=== PATIENT | male | born 1960 | race Caucasian/White ===

== ENCOUNTER 2017-04-09 17:42 | Inpatient (IN) ==
[2017-04-09] MEDS ORDERED: IPRATROPIUM/ALBUTEROL 3 ML AMPUL.NEB NEB ONE ×2 (17:45→18:42)
[2017-04-09] MEDS ORDERED: NITROGLYCERIN 0.4 MG TAB.SUBL SL PRN (18:08)
[2017-04-09] MEDS ORDERED: 0.9 % SODIUM CHLORIDE 1,000 ML IV ONE ×2 (18:30→19:09)
[2017-04-09 18:34] LABS: Basophils # (Auto) 0 K/mcL (0.0-0.3); Basophils % (Auto) 0.3 % (0.0-2.0); Eosinophils # (Auto) 0.1 K/mcL (0.0-0.7); Eosinophils % (Auto) 0.6 % (0.0-7.0); Granulocytes % (Auto) 86.2 % (38.0-78.0); Lymphocytes # (Auto) 0.9 K/mcL (1.5-4.8); Lymphocytes % (Auto) 5.7 % (15.5-49.0); Mean Cell Volume 88.7 fL (80.0-100.0); Mean Corpuscular HGB Conc 33.2 g/dL (31.0-36.0); Mean Corpuscular Hemoglobin 29.5 pg (26.0-34.0); Monocytes # (Auto) 1.1 K/mcL (0.1-0.9); Monocytes % (Auto) 7.2 % (1.0-12.0); Platelet Count 245 K/mcL (140-440); RBC 4.94 M/mcL (4.50-5.90); Red Cell Distribution Width 14.1 % (11.5-14.5)
--- NOTE | 2017-04-09 18:40 | Emergency Department Note ---
SOB HPI - General Chief Complaint: Shortness of Breath/Dyspnea Stated Complaint: cough, shortness of breath Time Seen by Provider: 04/09/17 18:32 Source: patient, family Mode of arrival: ambulatory Limitations: no limitations - History of Present Illness History of cough since yesterday, is running a fever. He is also bringing up phlegm, quit smoking about 4 months ago, I believe wheezing and short of breath. The. He was also hypoxic in the preoperative. Currently on 2 L nasal cannula. Denies any chest pain, he's had no nausea, vomiting, denies abdominal pain, denies urinary symptoms, he's had no swelling of ankles. No history of heart condition. MD Complaint: shortness of breath - Related Data Home Medications Medication Instructions Recorded Confirmed No Known Home Meds [No Known Home 04/09/17 04/09/17 Meds] Allergies Allergy/AdvReac Type Severity Reaction Status Date / Time No Known Drug Allergies Allergy Unverified 01/28/16 20:13 Review of Systems All systems ED: reviewed and negative except as stated. Past Medical History - Past Medical History Medical history: Reports: COPD, other (history of pneumonia as a child) Surgical history ED: Reports: other (tonsilectomy) Psychiatric history: Reports: no psych history Family history: Reports: non-contributory - Social History smoking status: Former smoker Alcohol use: Reports: None Physical Exam - General Limitations: no limitations General appearance: alert, in distress - Head Head exam: atraumatic, normocephalic - Eye Eye exam: Present: normal appearance, PERRL, EOMI. Absent: scleral icterus, conjunctival injection - ENT ENT exam: normal exam, normal oropharynx, mucous membranes moist - Neck Neck exam: Present: normal inspection, full ROM, trachea midline - Chest Chest inspection: Present: normal inspection, symmetric chest wall rise. Absent : tenderness - Respiratory Respiratory exam: Present: respiratory distress, wheezes, accessory muscle use, prolonged expiratory phase - Cardiovascular Cardiovascular exam: Present: regular rate, normal heart sounds - Abdominal Exam Abdominal exam: Present: soft. Absent: distention, tenderness, guarding - Extremities Exam Extremities exam: Present: normal inspection, full ROM, tenderness. Absent: pedal edema, calf tenderness - Back Exam Back exam: Present: normal inspection, full ROM. Absent: CVA tenderness (R), CVA tenderness (L), vertebral tenderness - Neurological Exam Neurological exam: Present: alert, oriented X3, CN II-XII intact - Psychiatric Psychiatric exam: Present: normal affect, normal mood - Skin Skin exam: Present: warm, dry, intact. Absent: rash Course Vital Signs Temperature 100.0 F H 04/09/17 17:43 Pulse Rate 106 H 04/09/17 17:43 Respiratory Rate 20 04/09/17 17:43 Blood Pressure 133/76 04/09/17 17:43 Pulse Oximetry (%) 85 L 04/09/17 17:43 Temperature 100.0 F H 04/09/17 17:43 Pulse Rate 125 H 04/09/17 19:04 Respiratory Rate 17 04/09/17 19:04 Blood Pressure 134/76 04/09/17 19:01 Pulse Oximetry (%) 96 04/09/17 19:01 Shortness of Breath/Dyspnea - MDM Narrative Medical decision making narrative: Labs reviewed, Chest X-Ray without Acute Infiltrates or Borderline, We'll Treat As Pneumonia, COPD Exacerbation. Discussed with Dr. Middleton - Lab Data Result diagrams: 04/09/17 18:08 04/09/17 18:08 Lab Results 04/09/17 04/09/17 04/09/17 Range/Units 18:08 18:08 18:08 WBC 15.8 H (4.5-11.0) K/mcL RBC 4.94 (4.50-5.90) M/mcL Hgb 14.6 (13.5-16.5) g/dL Hct 43.8 (41.0-55.0) % MCV 88.7 (80.0-100.0) fL MCH 29.5 (26.0-34.0) pg MCHC 33.2 (31.0-36.0) g/dL RDW 14.1 (11.5-14.5) % Plt Count 245 (140-440) K/mcL MPV 8.9 (7.4-10.4) fL Gran % 86.2 H (38.0-78.0) % Lymph % (Auto) 5.7 L (15.5-49.0) % [place] % (Auto) 7.2 (1.0-12.0) % Eos % (Auto) 0.6 (0.0-7.0) % Baso % (Auto) 0.3 (0.0-2.0) % Gran # 13.6 H (1.8-8.0) K/mcL Lymph # 0.9 L (1.5-4.8) K/mcL [place] # 1.1 H (0.1-0.9) K/mcL Eos # 0.1 (0.0-0.7) K/mcL Baso # 0 (0.0-0.3) K/mcL VBG Lactic Acid (0.5-2.2) mmol/L Sodium 138 (133-145) mmol/L Potassium 3.9 (3.3-5.1) mmol/L Chloride 99 (96-108) mmol/L Carbon Dioxide 19 L (22-30) mmol/L Anion Gap 20.0 H (8-16) BUN 11 (6-20) mg/dl Creatinine 0.9 (0.7-1.2) mg/dl GFR Calculation 94 Glucose 89 (70-105) mg/dL Calcium 9.1 (8.6-10.4) mg/dl Total Bilirubin 0.8 (0.0-1.0) mg/dL AST 17 (0-37) U/l ALT 18 (0-40) U/l Alkaline Phosphatase 71 (39-117) U/L C-Reactive Protein 2.1 H (0.0-0.8) mg/dl Total Protein 7.6 (5.9-8.4) gm/dL Albumin 4.1 (3.2-5.2) gm/dL Globulin 3.5 (2.2-3.7) gm/dL Albumin/Globulin Ratio 1.2 (1.0-2.3) 04/09/17 Range/Units 18:22 WBC (4.5-11.0) K/mcL RBC (4.50-5.90) M/mcL Hgb (13.5-16.5) g/dL Hct (41.0-55.0) % MCV (80.0-100.0) fL MCH (26.0-34.0) pg MCHC (31.0-36.0) g/dL RDW (11.5-14.5) % Plt Count (140-440) K/mcL MPV (7.4-10.4) fL Gran % (38.0-78.0) % Lymph % (Auto) (15.5-49.0) % [place] % (Auto) (1.0-12.0) % Eos % (Auto) (0.0-7.0) % Baso % (Auto) (0.0-2.0) % Gran # (1.8-8.0) K/mcL Lymph # (1.5-4.8) K/mcL [place] # (0.1-0.9) K/mcL Eos # (0.0-0.7) K/mcL Baso # (0.0-0.3) K/mcL VBG Lactic Acid 1.3 (0.5-2.2) mmol/L Sodium (133-145) mmol/L Potassium (3.3-5.1) mmol/L Chloride (96-108) mmol/L Carbon Dioxide (22-30) mmol/L Anion Gap (8-16) BUN (6-20) mg/dl Creatinine (0.7-1.2) mg/dl GFR Calculation Glucose (70-105) mg/dL Calcium (8.6-10.4) mg/dl Total Bilirubin (0.0-1.0) mg/dL AST (0-37) U/l ALT (0-40) U/l Alkaline Phosphatase (39-117) U/L C-Reactive Protein (0.0-0.8) mg/dl Total Protein (5.9-8.4) gm/dL Albumin (3.2-5.2) gm/dL Globulin (2.2-3.7) gm/dL Albumin/Globulin Ratio (1.0-2.3) Disposition Clinical Impression: Community acquired pneumonia Disposition: Xfer As Inpt ([facility]) Condition: Fair Referrals: No,PCP [Primary Care Provider] -
[2017-04-09] MEDS ORDERED: methylPREDNISolone SOD SUCC 125 MG/2 ML VIAL IV ONE (18:42)
[2017-04-09] MEDS ORDERED: AZITHROMYCIN 500 MG in DEXTROSE 5% IN WATER 250 ML IV ONE (18:44)
[2017-04-09] MEDS ORDERED: cefTRIAXone 1 GM in DEXTROSE 5% IN WATER 50 ML IV ONE (18:45)
[2017-04-09 19:00] LABS: ALT/SGPT 18 U/l (0-40); Albumin 4.1 gm/dL (3.2-5.2); Albumin/Globulin Ratio 1.2 (1.0-2.3); Alkaline Phosphatase 71 U/L (39-117); Blood Urea Nitrogen 11 mg/dl (6-20)
[2017-04-09] MEDS ORDERED: ONDANSETRON 4 MG/2 ML VIAL IV ONE (19:42)
--- NOTE | 2017-04-09 19:47 | Internal Med History&Physical ---
Medical - H&P: HPI Patient information: Note initiated : 04/09/17 at 7:43 pm Patient: Lizandro Spangler 56 y/o M admitted on for cough, shortness of breath. History of present illness: Mr. Spangler is a 56 year old male ho was seen in our emergency room and treated for bronchitis one year ago. He had a long-standing history of smoking, but says he quit about 1 year ago. He does not see a doctor regularly. He says he was in his normal state of health until about 3 days ago, when he developed a cough productive of phlegm, as well as a runny nose. He also noted the onset of fever and chills He has been having a headache when he coughs. His chest has been feeling tight. He's had some mild nausea. He presented to the emergency room today, and was noted to have hypoxia on room air. White blood cell count was elevated. He was treated aggressively with bronchodilators , IV steroids, IV antibiotics, and oxygen, but had persistent symptoms and therefore was referred for admission. He otherwise denies new eye or ear symptoms sinus pain, sore throat lymphadenopathy, chest pain or palpitations, abdominal pain, vomiting, diarrhea or constipation, bright red blood per rectum, dysuria. past medical history: Tobacco abuse,, approximately [id number] history,quit in 2016 Probable underlying COPD Medications:None Allergies: None Family history: Mother had diabetes. Father had colon cancer. His siblings are alive and well. He has 2 sons who are alive and well. 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 He smoked from the age of 18 until age 55, half to 1 pack per day. He only drinks alcohol about once a month. He does not use drugs. he is , and lives with his and one of his sons. Medical - H&P: Meds Home Medications Medication Instructions Recorded Confirmed Type No Known Home Meds [No Known Home 04/09/17 04/09/17 History Meds] Allergies Allergy/AdvReac Type Severity Reaction Status Date / Time No Known Drug Allergies Allergy Unverified 01/28/16 20:13 Medical - H&P: Exam - Constitutional Vitals: Temp Pulse Resp BP Pulse Ox 100.0 F H 121 H 19 138/79 94 04/09/17 17:43 04/09/17 19:31 04/09/17 19:31 04/09/17 19:31 04/09/17 19:31 on exam, he is a well-developed well-nourished man, in no acute distress, but with a very frequent very congested cough. he appears fatigued. Head: Normocephalic, atraumatic. Eyes: PERRLA, EOMI, anicteric. Ears: TMs and canals are clear. Pharynx: Pharynx is clear. Teeth are in fair condition. Neck: Neck is supple, without lymphadenopathy, JVD, thyromegaly, bruits.Cardiac exam: Shows regular rate and rhythm, with normal S1 and S2, without murmurs, rubs, gallops. Lungs: He has good air movement, but diffuse, loud rhonchi and wheezes throughout both lung ness. No crackles are definitely heard. There is no accessory muscle use. Abdomen: Is soft and nontender, without obvious masses. Bowel sounds are active. Extremities: Show no cyanosis, clubbing, edema. Neurologic exam: Is grossly nonfocal. Skin exam: Shows no rashes or other worrisome lesions. Medical - H&P: Reslt - Labs CBC & Chem 7: 04/09/17 18:08 04/09/17 18:08 Labs: Short CBC 04/09/17 Range/Units 18:08 WBC 15.8 H (4.5-11.0) K/mcL Hgb 14.6 (13.5-16.5) g/dL Hct 43.8 (41.0-55.0) % Plt Count 245 (140-440) K/mcL BMP 04/09/17 18:08 Sodium 138 Potassium 3.9 Chloride 99 Carbon Dioxide 19 L BUN 11 Creatinine 0.9 Glucose 89 Calcium 9.1 Liver Function 04/09/17 Range/Units 18:08 Total Bilirubin 0.8 (0.0-1.0) mg/dL AST 17 (0-37) U/l ALT 18 (0-40) U/l Alkaline Phosphatase 71 (39-117) U/L Albumin 4.1 (3.2-5.2) gm/dL o2 saturation was 85% on room air in the emergency roomheart rate is ranging [id number] respiratory rate ranging from 17-24 CBC differential shows absolute granulocyte count elevated at 13,000, depressed lymphocyte count of 900 anion gap is elevated at 20 lactic acid is normal at 1.3 C-reactive protein is elevated at 2.1 chest x-ray: Verbal report is normal. Formal report is pending. Medical - H&P: A/P (1) COPD exacerbation Current visit: Yes Status: Acute (2) History of tobacco abuse Current visit: Yes Status: Chronic (3) SIRS (systemic inflammatory response syndrome) Current visit: Yes Status: Acute (4) Lymphopenia Current visit: Yes Status: Acute (5) Bronchitis Current visit: No Status: Acute - Narrative A/P Narrative: #1. Pulmonary/infectious disease. - This patient presents with fever, cough, hypoxia, leukocytosis consistent with SIRS syndrome . He likely has early pneumonia, versus COPD exacerbation with bronchitis. he was treated aggressively in the emergency room, but did not improve to the point where he would be safe going home. -Admit for IV antibiotics, telemetry, pulse oximetry. -Oxygen, nebulized bronchodilators. -IV steroids -Blood and sputum cultures. -Regarding hypoxia and tachycardia, also check d-dimer, BNP troponin, EKG. #2. History of tobacco abuse. patient has been abstinent for approximately one year. #3. CODE STATUS:full code. #4. DVT prophylaxis:Subcutaneous Lovenox. #5. Metabolic/renal. -Patient presents with anion gap acidosis. #6. Hematologic. -Mild lymphopenia. Check follow-up labs. this visit took approximately 60 minutes,to review the patient's case with the ER M.D., review test results interview and examine him, order more tests, write orders.
[2017-04-09] MEDS ORDERED: ONDANSETRON 4 MG/2 ML VIAL IV PRN (20:44)
[2017-04-09] MEDS ORDERED: DOCUSATE SODIUM 100 MG CAPSULE PO PRN (20:44)
[2017-04-09] MEDS ORDERED: MAGNESIUM HYDROXIDE 30 ML ORAL.SUSP PO PRN (20:44)
[2017-04-09] MEDS ORDERED: POTASSIUM CHLORIDE 20 MEQ in 0.45 % SODIUM CHLORIDE 1,000 ML IV SCH (20:44)
[2017-04-09] MEDS ORDERED: ALBUTEROL SULFATE 2.5 MG/3 ML NEBULIZER NEB PRN (20:44)
[2017-04-09] MEDS ORDERED: POTASSIUM CHLORIDE 20 MEQ/10 ML VIAL IV ONE (21:03)
[2017-04-09] MEDS: FAMOTIDINE 20 MG TABLET PO SCH (22:00)
[2017-04-09 22:16] LABS: ALT/SGPT 16 U/l (0-40); Albumin 3.8 gm/dL (3.2-5.2); Albumin/Globulin Ratio 1.3 (1.0-2.3); Alkaline Phosphatase 61 U/L (39-117); Bilirubin,Direct < 0.2 mg/dL (0.0-0.3); Blood Urea Nitrogen 10 mg/dl (6-20); Gamma Glutamyl Transpeptidase 10 U/L (8-61); Magnesium 1.5 mg/dL (1.6-2.5); proBNP 65.3 pg/ml (0-125)
[2017-04-09] MEDS ORDERED: MAGNESIUM SULFATE 2 GM/50 ML BAG IV ONE ×2 (22:37→22:44)
[2017-04-10] MEDS: IPRATROPIUM/ALBUTEROL 3 ML AMPUL.NEB NEB SCH ×4 (01:08→19:27)
[2017-04-10 06:29] LABS: ALT/SGPT 14 U/l (0-40); Albumin 3.6 gm/dL (3.2-5.2); Albumin/Globulin Ratio 1.2 (1.0-2.3); Alkaline Phosphatase 58 U/L (39-117); Bilirubin,Direct < 0.2 mg/dL (0.0-0.3); Blood Urea Nitrogen 10 mg/dl (6-20); Gamma Glutamyl Transpeptidase 10 U/L (8-61); Magnesium 2.2 mg/dL (1.6-2.5); Uric Acid 6.7 mg/dL (2.5-8.0)
[2017-04-10 06:51] LABS: Basophils # (Auto) 0 K/mcL (0.0-0.3); Basophils % (Auto) 0 % (0.0-2.0); Eosinophils # (Auto) 0 K/mcL (0.0-0.7); Eosinophils % (Auto) 0 % (0.0-7.0); Granulocytes % (Auto) 92.8 % (38.0-78.0); Lymphocytes # (Auto) 0.4 K/mcL (1.5-4.8); Lymphocytes % (Auto) 2.5 % (15.5-49.0); Mean Cell Volume 89.4 fL (80.0-100.0); Mean Corpuscular HGB Conc 33.4 g/dL (31.0-36.0); Mean Corpuscular Hemoglobin 29.8 pg (26.0-34.0); Monocytes # (Auto) 0.8 K/mcL (0.1-0.9); Monocytes % (Auto) 4.7 % (1.0-12.0); Platelet Count 195 K/mcL (140-440); RBC 4.31 M/mcL (4.50-5.90); Red Cell Distribution Width 14.2 % (11.5-14.5)
--- NOTE | 2017-04-10 08:01 | XRay Report ---
HISTORY: Reason for Exam:cough, fever FINDINGS: There is a small band of discoid atelectasis located laterally in the lower third of the right lung. Mildly prominent increased interstitial lung markings seen in the right upper lobe which may be due to mild underlying pulmonary fibrosis. There is no evidence of pneumonia, mass or pleural effusion. The heart size, mediastinum and rich are normal. IMPRESSION: Small band of discoid atelectasis in the right lower lobe. Interpreted and Authenticated by: Amos Rose 04/10/17
--- NOTE | 2017-04-10 08:03 | XRay Report ---
HISTORY: Reason for Exam:hypoxia FINDINGS: Patient has developed bibasilar alveolar infiltrates. These were not present on yesterday's exam. There are also thin bands of discoid atelectasis in both lower lobes. Mild pulmonary fibrosis is present in the right upper lobe. There is no pleural effusion. The heart size, mediastinum and rich are normal. IMPRESSION: Bibasilar pneumonia, right worse than left Interpreted and Authenticated by: Amos Rose 04/10/17
[2017-04-10] MEDS: ENOXAPARIN 40 MG/0.4 ML SYRINGE SQ SCH (08:38)
[2017-04-10] MEDS: FAMOTIDINE 20 MG TABLET PO SCH ×2 (08:38→20:42)
[2017-04-10] MEDS: methylPREDNISolone SOD SUCC 125 MG/2 ML VIAL IV SCH ×2 (08:38→20:42)
[2017-04-10] MEDS ORDERED: PNEUMOCOCCAL 23-VAL P-SAC VAC 0.5 ML VIAL IM ONE (09:00)
[2017-04-10] MEDS ORDERED: NICOTINE 14 MG PATCH TOPICAL SCH (10:00)
--- NOTE | 2017-04-10 10:50 | Internal Med Progress Note ---
Medical - PN: Subj Patient information: Note initiated : 04/10/17 at 10:50 am Patient: Lizandro Spangler 56 y/o M admitted on 04/09/17 for Cough, Shortness of Breath/Pneumonia. Interval history: april 09, 2017: History of present illness: Mr. Spangler is a 56 year old male who was seen in our emergency room and treated for bronchitis one year ago. He had a long-standing history of smoking, but says he quit about 1 year ago. He does not see a doctor regularly. He says he was in his normal state of health until about 3 days ago, when he developed a cough productive of phlegm, as well as a runny nose. He also noted the onset of fever and chills He has been having a headache when he coughs. His chest has been feeling tight. He's had some mild nausea. He presented to the emergency room today, and was noted to have hypoxia on room air. White blood cell count was elevated. He was treated aggressively with bronchodilators , IV steroids, IV antibiotics, and oxygen, but had persistent symptoms and therefore was referred for admission. He otherwise denies new eye or ear symptoms sinus pain, sore throat lymphadenopathy, chest pain or palpitations, abdominal pain, vomiting, diarrhea or constipation, bright red blood per rectum, dysuria. April 10: his morning, the patient says he was up a lot during the night coughing. He still has a cough productive of very large amounts of phlegm. He does think that his shortness of breath is mildly improved but he still feels quite fatigued. He did have a fever again this morning. He still notes subjective wheezing as well.Otherwise,his is here with him this morning. They both agree that he seems a little better today. He denies headaches or dizziness sore throat, chest pain or palpitations, abdominal pain, nausea or vomiting, diarrhea or constipation, dysuria. sputum is growing gram-negative rods on preliminary report. - Constitutional Vitals: Vital Signs Temp Pulse Resp BP Pulse Ox 100.7 F H 106 H 22 124/68 95 04/10/17 08:00 04/10/17 08:00 04/10/17 08:00 04/10/17 08:00 04/10/17 08:00 Period Temp Pulse Resp BP Sys/Reed Pulse Ox Last 24 Hr 98.9 F-100.7 F 104-107 18-22 115-124/63-68 3-95 Intake and Output 04/09/17 04/10/17 04/10/17 21:59 05:59 13:59 Intake Total 840 / 840 600 / 600 Output Total 1250 / 1250 925 / 925 Balance -410 / -410 -325 / -325 Weight 154 lb Intake & Output: Intake & Output 04/09/17 04/10/17 04/10/17 21:59 05:59 13:59 Intake Total 840 / 840 600 / 600 Output Total 1250 / 1250 925 / 925 Balance -410 / -410 -325 / -325 Weight 154 lb Intake: Oral 840 / 840 600 / 600 Output: Void Amount 1250 / 1250 925 / 925 Other: Meal Breakfast Percent of Meal Consumed 10 Feeding Ability Independent # Voids 2 the patient appears fatigued, but otherwise in no acute distress. he is able to speak a full sentence today, without being interrupted by a cough, which is improved. Neck shows no obvious lymphadenopathy or JVD. Cardiac exam shows regular rate and rhythm. Lungs: He still has fairly diffuse rhonchi and wheezes, without definite crackles. There is no obvious accessory muscle use. Abdomen: Is soft and nontender. Extremities: Show no edema. Neurologic exam: Is grossly nonfocal. Medical - PN: Obj Da - Labs CBC & Chem 7: 04/10/17 03:41 04/10/17 03:41 Labs: Abnormal Lab Results 04/10/17 04/10/17 04/09/17 03:41 03:41 20:56 WBC 16.8 H RBC 4.31 L Hgb 12.9 L Hct 38.5 L Gran % 92.8 H Lymph % (Auto) 2.5 L Gran # 15.6 H Lymph # 0.4 L Carbon Dioxide 20 L 18 L Anion Gap 17.0 H 18.0 H Glucose 184 H 161 H Calcium 8.1 L 7.9 L Phosphorus 2.1 L Magnesium 1.5 L April 1: temperature is 100.7 this morning. Pulse is ranging from 14-116. respiratory rate 18-22. O2 [id number]% on 3 L. sputum Gram stain: Shows many polys, moderate intracellular gram-negative coccobacilli, moderate gram-negative bacilli, culture to follow chest x-ray: Bibasilar alveolar infiltrates with Invanz of discoid atelectasis in both lower lobes. Mild pulmonary fibrosis in the right upper lobe. Findings consistent with bibasilar pneumonia, right worse than left. april 09: d-dimer was normal at less than 0.27 o2 saturation was 85% on room air in the emergency room;heart rate is ranging [id number] ;respiratory rate ranging from 17-24 CBC differential shows absolute granulocyte count elevated at 13,000, depressed lymphocyte count of 900 anion gap is elevated at 20 lactic acid is normal at 1.3 C-reactive protein is elevated at 2.1 chest x-ray: small band of discoid atelectasisin the lower third of the right lung Mildly prominent increased interstitial lung markings in the right upper lobe which may be due to fibrosis. No obvious pneumonia.. Meds: Medications Acetaminophen (Tylenol) 650 mg PO Q6HP PRN PRN Reason: PAIN/FEVER > 101 Albuterol Sulfate (Ventolin) 2.5 mg NEB Q4HRT PRN PRN Reason: Shortness Of Breath Or Wheezing Albuterol/Ipratropium (Duoneb) 3 ml NEB Q6HRT [facility] Last Admin: 04/10/17 07:29 Dose: 3 ml Docusate Sodium (Colace) 100 mg PO BIDP PRN PRN Reason: Constipation Enoxaparin Sodium (Lovenox) 40 mg SQ DAILY [facility] Last Admin: 04/10/17 08:38 Dose: 40 mg Famotidine (Pepcid) 20 mg PO BID [facility] Last Admin: 04/10/17 08:38 Dose: 20 mg Azithromycin 500 mg/ Dextrose 250 mls @ 250 mls/hr IV DAILY [facility] Stop: 04/11/17 09:59 Ceftriaxone Sodium 1 gm/ (Dextrose) 50 mls @ 100 mls/hr IV DAILY [facility] Potassium Chloride 20 meq/ (Sodium Chloride) 1,010 mls @ 50 mls/hr IV .[id number] [facility] Stop: 04/10/17 16:55 Last Admin: 04/09/17 21:25 Dose: 50 mls/hr Magnesium Hydroxide (Milk Of Magnesia) 30 ml PO DAILYP PRN PRN Reason: Constipation Methylprednisolone Sodium Succinate (Solu-Medrol) 80 mg IV Q12 [facility] Last Admin: 04/10/17 08:38 Dose: 80 mg Ondansetron HCl (Zofran) 4 mg IV Q4HP PRN PRN Reason: Nausea And Vomiting Medical - PN: A/P - Time Spent With Patient Total time spent is greater than 50% in coordination of care (as documented) at patient's floor/unit and/or counseling patient: (1) COPD exacerbation Status: Acute Current Visit: Yes (2) History of tobacco abuse Status: Chronic Current Visit: Yes (3) SIRS (systemic inflammatory response syndrome) Status: Acute Current Visit: Yes (4) Lymphopenia Status: Acute Current Visit: Yes (5) Bronchitis Status: Acute Current Visit: No (6) Pneumonia of both lower lobes Status: Acute Current Visit: Yes - Narrative A/P Narrative: #1. Pulmonary/infectious disease. - This patient presents with fever, cough, hypoxia, leukocytosis consistent with SIRS syndrome . chest x-ray today confirms bibasilar pneumonia, as well as right upper lobe fibrosis. sputum appears to be growing gram-negative rods. he is responding, somewhat slowly, to aggressive management. Continue this for now. -advised Robitussin with codeine,for a cough that is quite aggravating. Continue aggressive pulmonary toilet. -continue IV antibiotics- rocephin and azithromycin, telemetry, pulse oximetry. -Oxygen, nebulized bronchodilators. -IV steroids -Blood and sputum cultures. -Regarding hypoxia and tachycardia, d-dimer, BNP troponin were all within normal limits. -patient should probably have referral to pulmonary to further investigate underlying pulmonary fibrosis process. -Check ABG today. #2. History of tobacco abuse. patient has been abstinent for approximately one year. #3. CODE STATUS:full code. #4. DVT prophylaxis:Subcutaneous Lovenox. #5. Metabolic/renal. -Patient presents with anion gap acidosis. etiology uncertain. Check ABG. -hypomagnesemia. This was replaced IV last night. Improved today. #6. Hematologic. -Mild lymphopenia. Check follow-up labs. -the patient has a low-grade anemia as well. Continue to follow. Check stool cards and iron level. -leukocytosis, likely aggravated by IV steroids. this visit is taken approximately 30 minutes so far today, to review test results, interview and examine the patient,review plan of care with the patient and nursing, and write orders. Medical - PN: Qual - VTE Deep Vein Thrombosis/Pulmonary Embolism Present on Admission: No
[2017-04-10] MEDS: cefTRIAXone 1 GM in DEXTROSE 5% IN WATER 50 ML IV SCH (12:58)
[2017-04-10] MEDS ORDERED: AZITHROMYCIN 500 MG in DEXTROSE 5% IN WATER 250 ML IV SCH (13:00)
[2017-04-10] MEDS: ACETAMINOPHEN 325 MG TABLET PO PRN (13:00)
[2017-04-10] MEDS: guaiFENesin/CODEINE 10 ML UDC PO PRN (22:19)
[2017-04-11] MEDS: IPRATROPIUM/ALBUTEROL 3 ML AMPUL.NEB NEB SCH ×4 (00:38→19:25)
[2017-04-11 05:50] LABS: Basophils # (Auto) 0 K/mcL (0.0-0.3); Basophils % (Auto) 0 % (0.0-2.0); Eosinophils # (Auto) 0 K/mcL (0.0-0.7); Eosinophils % (Auto) 0.2 % (0.0-7.0); Granulocytes % (Auto) 93.7 % (38.0-78.0); Lymphocytes # (Auto) 0.5 K/mcL (1.5-4.8); Lymphocytes % (Auto) 2.5 % (15.5-49.0); Mean Cell Volume 86.8 fL (80.0-100.0); Mean Corpuscular HGB Conc 34.3 g/dL (31.0-36.0); Mean Corpuscular Hemoglobin 29.7 pg (26.0-34.0); Monocytes # (Auto) 0.7 K/mcL (0.1-0.9); Monocytes % (Auto) 3.6 % (1.0-12.0); Platelet Count 199 K/mcL (140-440); RBC 4.12 M/mcL (4.50-5.90); Red Cell Distribution Width 13.3 % (11.5-14.5)
[2017-04-11 06:28] LABS: Iron 24 mcg/dl (61-157); Transferrin % Saturation 14 % (20-50); Unsaturated Iron Binding 142 mcg/dL (112-346)
[2017-04-11] MEDS: methylPREDNISolone SOD SUCC 125 MG/2 ML VIAL IV SCH (09:16)
[2017-04-11] MEDS: guaiFENesin/CODEINE 10 ML UDC PO PRN ×2 (09:17→18:38)
[2017-04-11] MEDS: cefTRIAXone 1 GM in DEXTROSE 5% IN WATER 50 ML IV SCH (09:18)
[2017-04-11] MEDS: ENOXAPARIN 40 MG/0.4 ML SYRINGE SQ SCH (09:19)
[2017-04-11] MEDS: FAMOTIDINE 20 MG TABLET PO SCH ×2 (09:19→20:41)
[2017-04-11] MEDS ORDERED: AZITHROMYCIN 500 MG in DEXTROSE 5% IN WATER 250 ML IV ONE (10:00)
--- NOTE | 2017-04-11 12:05 | Internal Med Progress Note ---
Medical - PN: Subj Patient information: Note initiated : 04/11/17 at 12:04 pm Service Date, if different from initiated Date: [] Patient: Lizandro Spangler 56 y/o M admitted on 04/09/17 for Cough, Shortness of Breath/Pneumonia. Chief Complaint: [] Interval history: april 09, 2017: History of present illness: Mr. Spangler is a 56 year old male who was seen in our emergency room and treated for bronchitis one year ago. He had a long-standing history of smoking, but says he quit about 1 year ago. He does not see a doctor regularly. He says he was in his normal state of health until about 3 days ago, when he developed a cough productive of phlegm, as well as a runny nose. He also noted the onset of fever and chills He has been having a headache when he coughs. His chest has been feeling tight. He's had some mild nausea. He presented to the emergency room today, and was noted to have hypoxia on room air. White blood cell count was elevated. He was treated aggressively with bronchodilators , IV steroids, IV antibiotics, and oxygen, but had persistent symptoms and therefore was referred for admission. He otherwise denies new eye or ear symptoms sinus pain, sore throat lymphadenopathy, chest pain or palpitations, abdominal pain, vomiting, diarrhea or constipation, bright red blood per rectum, dysuria. April 10: this morning, the patient says he was up a lot during the night coughing. He still has a cough productive of very large amounts of phlegm. He does think that his shortness of breath is mildly improved but he still feels quite fatigued. He did have a fever again this morning. He still notes subjective wheezing as well.Otherwise,his is here with him this morning. They both agree that he seems a little better today. He denies headaches or dizziness sore throat, chest pain or palpitations, abdominal pain, nausea or vomiting, diarrhea or constipation, dysuria. sputum is growing gram-negative rods on preliminary report. April 11: today,the patient feels he is improved, compared with yesterday. He continues to have a fairly horrendous cough which is productive of a large amount of phlegm. Walking and talking seem to trigger the cough. But overall, he does feel better. He has not felt feverish today. he continues to have mild dyspnea with exertion. he continues to require supplemental oxygen. He otherwise denies headaches or dizziness, chest pain or palpitations, abdominal pain, nausea or vomiting, diarrhea or constipation, dysuria. - Constitutional Vitals: Vital Signs Temp Pulse Resp BP Pulse Ox 97.8 F 106 H 19 119/70 93 04/11/17 06:41 04/11/17 08:00 04/11/17 08:00 04/11/17 06:41 04/11/17 08:00 Period Temp Pulse Resp BP Sys/Reed Pulse Ox Last 24 Hr 97.8 F-101.7 F 105-111 14-24 110-124/61-76 92-96 Intake and Output 04/10/17 04/11/17 04/11/17 21:59 05:59 13:59 Intake Total 740 / 740 240 / 240 1300 / 1300 Output Total 3075 / 3075 350 / 350 950 / 950 Balance -2335 / -2335 -110 / -110 350 / 350 Weight 155 lb 8 oz 155 lb 8 oz Patient Weight 04/12/17 05:59 Weight 155 lb 8 oz Intake & Output: Intake & Output 04/10/17 04/11/17 04/11/17 21:59 05:59 13:59 Intake Total 740 / 740 240 / 240 1300 / 1300 Output Total 3075 / 3075 350 / 350 950 / 950 Balance -2335 / -2335 -110 / -110 350 / 350 Weight 155 lb 8 oz 155 lb 8 oz Intake: IV 300 / 300 300 / 300 Zithromax 500 mg In 250 / 250 250 / 250 Dextrose 5% in Water 250 ml @ 250 mls/hr IV ONCE ONE Rx#:[id number] Rocephin 1 gm In Dextrose 50 / 50 50 / 50 5% in Water 50 ml @ 100 mls/hr IV DAILY VIKTOR Rx#: [id number] Oral 440 / 440 240 / 240 1000 / 1000 Output: Urine Catheter Amount 1450 / 1450 Void Amount 1625 / 1625 350 / 350 950 / 950 Other: Meal Dinner Percent of Meal Consumed 100% 100% Feeding Ability Independent # Voids 1 on exam, he is sitting up in bed, in no acute distress. Neck is supple without obvious lymphadenopathy. Cardiac exam is regular rate and rhythm. Lungs:Continue to show diffuse wheezes and rhonchi throughout both lung ness. There is no accessory muscle use. abdomen: Is soft and nontender. Extremities: Show no edema. Medical - PN: Obj Da - Labs CBC & Chem 7: 04/11/17 03:28 04/10/17 03:41 Labs: Abnormal Lab Results 04/11/17 04/11/17 04/10/17 03:28 03:28 03:41 WBC 19.6 H RBC 4.12 L Hgb 12.2 L Hct 35.8 L Gran % 93.7 H Lymph % (Auto) 2.5 L Gran # 18.4 H Lymph # 0.5 L Carbon Dioxide 20 L Anion Gap 17.0 H Glucose 184 H Calcium 8.1 L Phosphorus Magnesium Iron 24 L TIBC 166 L Transferrin % Sat 14 L 04/10/17 04/09/17 03:41 20:56 WBC 16.8 H RBC 4.31 L Hgb 12.9 L Hct 38.5 L Gran % 92.8 H Lymph % (Auto) 2.5 L Gran # 15.6 H Lymph # 0.4 L Carbon Dioxide 18 L Anion Gap 18.0 H Glucose 161 H Calcium 7.9 L Phosphorus 2.1 L Magnesium 1.5 L Iron TIBC Transferrin % Sat april 11: temperature at midnight was 99.6. heart rate is ranging from 104-116. O2 saturation is 94% on 2 L. respiratory rate 18. sputum culture was read as normal. April 10: temperature is 100.7 this morning. Pulse is ranging from 14-116. respiratory rate 18-22. O2 [id number]% on 3 L. sputum Gram stain: Shows many polys, moderate intracellular gram-negative coccobacilli, moderate gram-negative bacilli, culture to follow chest x-ray: Bibasilar alveolar infiltrates with thin bands of discoid atelectasis in both lower lobes. Mild pulmonary fibrosis in the right upper lobe. Findings consistent with bibasilar pneumonia, right worse than left. aBG on3 L nasal cannula:PH 7.44, CO2 36, PO2 75, bicarbonate 24 O2 saturation 95 % april 09: d-dimer was normal at less than 0.27 magnesium was low at 1.5 Troponin is nl at less than 0.01 o2 saturation was 85% on room air in the emergency room;heart rate is ranging [id number] ;respiratory rate ranging from 17-24 CBC differential shows absolute granulocyte count elevated at 13,000, depressed lymphocyte count of 900 anion gap is elevated at 20 lactic acid is normal at 1.3 C-reactive protein is elevated at 2.1 blood cultures are negative so far. chest x-ray: small band of discoid atelectasisin the lower third of the right lung Mildly prominent increased interstitial lung markings in the right upper lobe which may be due to fibrosis. No obvious pneumonia.. Meds: Medications Acetaminophen (Tylenol) 650 mg PO Q6HP PRN PRN Reason: PAIN/FEVER > 101 Last Admin: 04/10/17 13:00 Dose: 650 mg Albuterol Sulfate (Ventolin) 2.5 mg NEB Q4HRT PRN PRN Reason: Shortness Of Breath Or Wheezing Albuterol/Ipratropium (Duoneb) 3 ml NEB Q6HRT [facility] Last Admin: 04/11/17 07:16 Dose: 3 ml Docusate Sodium (Colace) 100 mg PO BIDP PRN PRN Reason: Constipation Enoxaparin Sodium (Lovenox) 40 mg SQ DAILY [facility] Last Admin: 04/11/17 09:19 Dose: 40 mg Famotidine (Pepcid) 20 mg PO BID [facility] Last Admin: 04/11/17 09:19 Dose: 20 mg Guaifenesin/Codeine Phosphate (Robitussin Ac) 10 ml PO Q4HP PRN PRN Reason: Cough Last Admin: 04/11/17 09:17 Dose: 10 ml Ceftriaxone Sodium 1 gm/ (Dextrose) 50 mls @ 100 mls/hr IV DAILY [facility] Last Infusion: 04/11/17 10:00 Dose: Infused Magnesium Hydroxide (Milk Of Magnesia) 30 ml PO DAILYP PRN PRN Reason: Constipation Methylprednisolone Sodium Succinate (Solu-Medrol) 80 mg IV Q12 [facility] Last Admin: 04/11/17 09:16 Dose: 80 mg Ondansetron HCl (Zofran) 4 mg IV Q4HP PRN PRN Reason: Nausea And Vomiting Medical - PN: A/P - Time Spent With Patient Total time spent is greater than 50% in coordination of care (as documented) at patient's floor/unit and/or counseling patient: 25 - 35 minutes (1) COPD exacerbation Status: Acute Current Visit: Yes (2) History of tobacco abuse Status: Chronic Current Visit: Yes (3) SIRS (systemic inflammatory response syndrome) Status: Acute Current Visit: Yes (4) Lymphopenia Status: Acute Current Visit: Yes (5) Bronchitis Status: Acute Current Visit: No (6) Pneumonia of both lower lobes Status: Acute Current Visit: Yes - Narrative A/P Narrative: #1. Pulmonary/infectious disease. - This patient presents with fever, cough, hypoxia, leukocytosis consistent with SIRS syndrome . chest x-ray today confirms bibasilar pneumonia, as well as right upper lobe fibrosis. sputum appears Gram stain showed gram-negative rods, but culture is read as normal. . he is responding, somewhat slowly, to aggressive management. Continue this for now. -advised Robitussin with codeine,for a cough that is quite aggravating. -Continue aggressive pulmonary toilet. -continue IV antibiotics- rocephin and azithromycin, telemetry, pulse oximetry. -Oxygen, nebulized bronchodilators. -IV steroids -Blood and sputum cultures. -Regarding hypoxia and tachycardia, d-dimer, BNP troponin were all within normal limits. -patient should probably have referral to pulmonary to further investigate underlying pulmonary fibrosis process. #2. History of tobacco abuse. patient has been abstinent for approximately one year. #3. CODE STATUS:full code. #4. DVT prophylaxis:Subcutaneous Lovenox. #5. Metabolic/renal. -Patient presents with anion gap acidosis. etiology uncertain. There is no evidence of a respiratory acidosis -hypomagnesemia. This was replaced IV last night. Improved . #6. Hematologic. -Mild lymphopenia. this is persistent, that may be due to acute illness. If it does persist, consider HIV and hepatitis screening. -the patient has a low-grade anemia as well. He appears to have severe iron deficiency. He has not received any routine health screenings, and is overdue for screening colonoscopy, especially given his family history of colon cancer. -Start oral iron replacement. -Check stool cards. -leukocytosis, likely aggravated by IV steroids. this visit has taken approximately 30 minutes so far today, to review test results, interview and examine the patient,review plan of care with the patient and his , as well as nursing, and write orders. Medical - PN: Qual - VTE Deep Vein Thrombosis/Pulmonary Embolism Present on Admission: No
[2017-04-11] MEDS ORDERED: methylPREDNISolone SOD SUCC 40 MG/ML VIAL IV SCH (14:00)
--- NOTE | 2017-04-11 14:19 | Internal Medicine Consult Note ---
Medical - CN: HPI - Data of Consult Consult date: 04/11/17 Requesting Physician: Mary Guerrero Primary Care Provider: PCP No - Consult Narrative History of present illness: Mr. Spangler is a 56 year old male CC: Mary Guerrero Medical - CN: Meds Home Medications Medication Instructions Recorded Confirmed Type No Known Home Meds [No Known Home 04/09/17 04/09/17 History Meds] Allergies Allergy/AdvReac Type Severity Reaction Status Date / Time No Known Drug Allergies Allergy Unverified 01/28/16 20:13 Medical - CN: Exam - Constitutional Vitals: Temp Pulse Resp BP Pulse Ox 99.6 F H 105 H 18 125/74 94 04/11/17 12:00 04/11/17 12:49 04/11/17 12:49 04/11/17 12:00 04/11/17 12:50 Medical - CN: Result - Labs CBC & Chem 7: 04/11/17 03:28 04/10/17 03:41 Labs: Short CBC 04/11/17 Range/Units 03:28 WBC 19.6 H (4.5-11.0) K/mcL Hgb 12.2 L (13.5-16.5) g/dL Hct 35.8 L (41.0-55.0) % Plt Count 199 (140-440) K/mcL
--- NOTE | 2017-04-11 14:23 | Internal Medicine Consult Note ---
Medical - CN: HPI - Data of Consult Requesting Physician: Mary Guerrero Primary Care Provider: PCP No - Consult Narrative Reason for consult: 56 year old male with atypical repiratory presentation History of present illness: Mr. Spangler is a 56 year old male with an atypical presentaion of SOB / Pneumonia The patient reports a 4 day prodrome of progressive sense of SOB and cough eventually productive of green sputum. He felt sufficiently un well that he presented to [facility] for evaluation. He was found to be hypoxic and have an abnormal auscultation of the chest and referred for admission He works for a [employer]. He denies industrial work exposures.He denies unusual exposure at home. He denies sidney fever or chills. He denies nausea or vomiting or LOC. He denies exposure to TB or previous PPD. HE denies travel exposures. He does report a 30+ pack year tobacco exposure. He quit 4 months ago. His sister is in the room and confirms his story and reports he had a serious childhood pneumonia. He has a father that of colon cancer and has not had a colonoscopy and is informed he needs to have a primary care provider and get a colonoscopy. 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 Coughs occasionally during the course of the history and exam. Head atramatic normocephalic Eyes PERRLA EOMI Sclera and conjunctive clear. Neck supple, carotids W/O bruits Lungs coarse diffuse wheeze and occ Rhonchi. Rhonchi greater in the right base. Heart regular S1, S2 no M G rub JVD or Edema Abgd soft BSN no tenderness mass or organomegaly BJE W/O acute changes no clubing cyanosis or edema Neuro exam non-focal toes both down CXR initially essentially normal on admit, with repeat evolving a RLL posterior infiltrate WBC elevated and rising with low lymphocytes and falling hematocrit and iron studies suggesting anemia of chronic disease(but what disease) Impression/plan: pneumonia consider anaerobes and aspiration despite history and consider covering anaerobes. Probable COPD History of first degree relative with colon cancer in need of colonoscopy ?anemia of chronic disease (search for chronic disease) Lymphopenia etiology undefined. CC: Mary Guerrero Medical - CN: Meds Home Medications Medication Instructions Recorded Confirmed Type No Known Home Meds [No Known Home 04/09/17 04/09/17 History Meds] Allergies Allergy/AdvReac Type Severity Reaction Status Date / Time No Known Drug Allergies Allergy Unverified 01/28/16 20:13 Medical - CN: Exam - Constitutional Vitals: Temp Pulse Resp BP Pulse Ox 99.6 F H 105 H 18 125/74 94 04/11/17 12:00 04/11/17 12:49 04/11/17 12:49 04/11/17 12:00 04/11/17 12:50 Medical - CN: Result - Labs CBC & Chem 7: 04/11/17 03:28 04/10/17 03:41 Labs: Short CBC 04/11/17 Range/Units 03:28 WBC 19.6 H (4.5-11.0) K/mcL Hgb 12.2 L (13.5-16.5) g/dL Hct 35.8 L (41.0-55.0) % Plt Count 199 (140-440) K/mcL
[2017-04-11] MEDS: PIPERACILLIN SODIUM/TAZOBACTAM 3.375 GM in DEXTROSE 5% IN WATER 50 ML IV SCH (18:38)
[2017-04-11] MEDS: methylPREDNISolone SOD SUCC 40 MG/ML VIAL IV SCH (20:40)
[2017-04-11] MEDS: ACETAMINOPHEN 325 MG TABLET PO PRN (20:40)
[2017-04-12] MEDS: PIPERACILLIN SODIUM/TAZOBACTAM 3.375 GM in DEXTROSE 5% IN WATER 50 ML IV SCH ×5 (00:01→23:30)
[2017-04-12] MEDS: IPRATROPIUM/ALBUTEROL 3 ML AMPUL.NEB NEB SCH ×4 (00:02→19:25)
[2017-04-12 05:34] LABS: Basophils # (Auto) 0 K/mcL (0.0-0.3); Basophils % (Auto) 0 % (0.0-2.0); Eosinophils # (Auto) 0 K/mcL (0.0-0.7); Eosinophils % (Auto) 0 % (0.0-7.0); Granulocytes % (Auto) 92.5 % (38.0-78.0); Lymphocytes # (Auto) 0.7 K/mcL (1.5-4.8); Lymphocytes % (Auto) 3.6 % (15.5-49.0); Mean Cell Volume 90.1 fL (80.0-100.0); Mean Corpuscular HGB Conc 33.6 g/dL (31.0-36.0); Mean Corpuscular Hemoglobin 30.3 pg (26.0-34.0); Monocytes # (Auto) 0.8 K/mcL (0.1-0.9); Monocytes % (Auto) 3.9 % (1.0-12.0); Platelet Count 230 K/mcL (140-440); RBC 3.93 M/mcL (4.50-5.90); Red Cell Distribution Width 14.3 % (11.5-14.5)
[2017-04-12 05:37] LABS: ALT/SGPT 12 U/l (0-40); Albumin 3.3 gm/dL (3.2-5.2); Albumin/Globulin Ratio 1.1 (1.0-2.3); Alkaline Phosphatase 54 U/L (39-117); Bilirubin,Direct < 0.2 mg/dL (0.0-0.3); Blood Urea Nitrogen 17 mg/dl (6-20); Gamma Glutamyl Transpeptidase 10 U/L (8-61); Magnesium 2.1 mg/dL (1.6-2.5); Uric Acid 3.9 mg/dL (2.5-8.0)
[2017-04-12] MEDS: ENOXAPARIN 40 MG/0.4 ML SYRINGE SQ SCH (08:58)
[2017-04-12] MEDS: methylPREDNISolone SOD SUCC 40 MG/ML VIAL IV SCH (08:58)
[2017-04-12] MEDS: FAMOTIDINE 20 MG TABLET PO SCH ×2 (08:58→20:45)
[2017-04-12] MEDS: guaiFENesin/CODEINE 10 ML UDC PO PRN ×3 (08:58→23:30)
--- NOTE | 2017-04-12 09:22 | Internal Med Progress Note ---
Medical - PN: Subj Patient information: Note initiated : 04/12/17 at 9:21 am Service Date, if different from initiated Date: [] Patient: Lizandro Spangler 56 y/o M admitted on 04/09/17 for Cough, Shortness of Breath/Pneumonia. Chief Complaint: [] Interval history: april 09, 2017: History of present illness: Mr. Spangler is a 56 year old male who was seen in our emergency room and treated for bronchitis one year ago. He had a long-standing history of smoking, but says he quit about 1 year ago. He does not see a doctor regularly. He says he was in his normal state of health until about 3 days ago, when he developed a cough productive of phlegm, as well as a runny nose. He also noted the onset of fever and chills He has been having a headache when he coughs. His chest has been feeling tight. He's had some mild nausea. He presented to the emergency room today, and was noted to have hypoxia on room air. White blood cell count was elevated. He was treated aggressively with bronchodilators , IV steroids, IV antibiotics, and oxygen, but had persistent symptoms and therefore was referred for admission. He otherwise denies new eye or ear symptoms sinus pain, sore throat lymphadenopathy, chest pain or palpitations, abdominal pain, vomiting, diarrhea or constipation, bright red blood per rectum, dysuria. April 10: this morning, the patient says he was up a lot during the night coughing. He still has a cough productive of very large amounts of phlegm. He does think that his shortness of breath is mildly improved but he still feels quite fatigued. He did have a fever again this morning. He still notes subjective wheezing as well.Otherwise,his is here with him this morning. They both agree that he seems a little better today. He denies headaches or dizziness sore throat, chest pain or palpitations, abdominal pain, nausea or vomiting, diarrhea or constipation, dysuria. sputum is growing gram-negative rods on preliminary report. April 11: today,the patient feels he is improved, compared with yesterday. He continues to have a fairly horrendous cough which is productive of a large amount of phlegm. Walking and talking seem to trigger the cough. But overall, he does feel better. He has not felt feverish today. he continues to have mild dyspnea with exertion. he continues to require supplemental oxygen. He otherwise denies headaches or dizziness, chest pain or palpitations, abdominal pain, nausea or vomiting, diarrhea or constipation, dysuria. April 12: he continues to improve daily, but also continues to have mild dyspnea with exertion, and continues to require supplemental oxygen. His cough is still productive of large amounts of phlegm. He otherwise denies fever or chills, sore throat, chest pain or palpitations and nausea or vomiting or diarrhea, or dysuria. 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 - Constitutional Vitals: Vital Signs Temp Pulse Resp BP Pulse Ox 97.4 F 92 H 20 133/81 91 04/12/17 06:57 04/12/17 07:29 04/12/17 07:29 04/12/17 06:57 04/12/17 07:31 Period Temp Pulse Resp BP Sys/Reed Pulse Ox Last 24 Hr 97.4 F-99.6 F 87-116 18-20 122-138/68-81 87-96 Intake and Output 04/11/17 04/12/17 04/12/17 21:59 05:59 13:59 Intake Total 2900 / 2900 530 / 530 530 / 530 Output Total 1625 / 1625 325 / 325 500 / 500 Balance 1275 / 1275 205 / 205 30 / 30 Weight 155 lb 8 oz Intake & Output: Intake & Output 04/11/17 04/12/17 04/12/17 21:59 05:59 13:59 Intake Total 2900 / 2900 530 / 530 530 / 530 Output Total 1625 / 1625 325 / 325 500 / 500 Balance 1275 / 1275 205 / 205 30 / 30 Weight 155 lb 8 oz Intake: IV 1060 / 1060 50 / 50 50 / 50 Zosyn 3.375 gm In 50 / 50 50 / 50 50 / 50 Dextrose 5% in Water 50 ml @ 100 mls/hr IV Q6H [facility] Rx#:[id number] Oral 1840 / 1840 480 / 480 480 / 480 Output: Void Amount 1625 / 1625 325 / 325 500 / 500 Other: Meal Dinner Breakfast Percent of Meal Consumed 100% 100% Feeding Ability Independent Independent temperature max 99.4 heart rate is ranging from 92-116. O2 saturation is currently 94% on 3 L on exam, he is sitting up in bed, in no acute distress. Neck is supple without obvious lymphadenopathy. Cardiac exam is regular rate and rhythm. Lungs:Continue to show diffuse wheezes and rhonchi throughout both lung ness. There is no accessory muscle use. abdomen: Is soft and nontender. Extremities: Show no edema. Medical - PN: Obj Da - Labs CBC & Chem 7: 04/12/17 04:10 04/12/17 04:10 Labs: Abnormal Lab Results 04/12/17 04/12/17 04/11/17 04:10 04:10 03:28 WBC 20.1 H RBC 3.93 L Hgb 11.9 L Hct 35.4 L Gran % 92.5 H Lymph % (Auto) 3.6 L Gran # 18.6 H Lymph # 0.7 L Carbon Dioxide Anion Gap Glucose 192 H Calcium 8.5 L Phosphorus Magnesium Iron 24 L TIBC 166 L Transferrin % Sat 14 L 04/11/17 04/10/17 04/10/17 03:28 03:41 03:41 WBC 19.6 H 16.8 H RBC 4.12 L 4.31 L Hgb 12.2 L 12.9 L Hct 35.8 L 38.5 L Gran % 93.7 H 92.8 H Lymph % (Auto) 2.5 L 2.5 L Gran # 18.4 H 15.6 H Lymph # 0.5 L 0.4 L Carbon Dioxide 20 L Anion Gap 17.0 H Glucose 184 H Calcium 8.1 L Phosphorus Magnesium Iron TIBC Transferrin % Sat 04/09/17 20:56 WBC RBC Hgb Hct Gran % Lymph % (Auto) Gran # Lymph # Carbon Dioxide 18 L Anion Gap 18.0 H Glucose 161 H Calcium 7.9 L Phosphorus 2.1 L Magnesium 1.5 L Iron TIBC Transferrin % Sat april 11: temperature at midnight was 99.6. heart rate is ranging from 104-116. O2 saturation is 94% on 2 L. respiratory rate 18. sputum culture was read as normal. Blood cultures continued to be negative. April 10: temperature is 100.7 this morning. Pulse is ranging from 14-116. respiratory rate 18-22. O2 anpigpiaes39% on 3 L. sputum Gram stain: Shows many polys, moderate intracellular gram-negative coccobacilli, moderate gram-negative bacilli, culture to follow chest x-ray: Bibasilar alveolar infiltrates with thin bands of discoid atelectasis in both lower lobes. Mild pulmonary fibrosis in the right upper lobe. Findings consistent with bibasilar pneumonia, right worse than left. aBG on3 L nasal cannula:PH 7.44, CO2 36, PO2 75, bicarbonate 24 O2 saturation 95 % april 09: d-dimer was normal at less than 0.27 magnesium was low at 1.5 Troponin is nl at less than 0.01 o2 saturation was 85% on room air in the emergency room;heart rate is ranging [id number] ;respiratory rate ranging from 17-24 CBC differential shows absolute granulocyte count elevated at 13,000, depressed lymphocyte count of 900 anion gap is elevated at 20 lactic acid is normal at 1.3 C-reactive protein is elevated at 2.1 blood cultures are negative so far. chest x-ray: small band of discoid atelectasisin the lower third of the right lung Mildly prominent increased interstitial lung markings in the right upper lobe which may be due to fibrosis. No obvious pneumonia.. Meds: Medications Acetaminophen (Tylenol) 650 mg PO Q6HP PRN PRN Reason: PAIN/FEVER > 101 Last Admin: 04/11/17 20:40 Dose: 650 mg Albuterol Sulfate (Ventolin) 2.5 mg NEB Q4HRT PRN PRN Reason: Shortness Of Breath Or Wheezing Albuterol/Ipratropium (Duoneb) 3 ml NEB Q6HRT [facility] Last Admin: 04/12/17 07:32 Dose: 3 ml Docusate Sodium (Colace) 100 mg PO BIDP PRN PRN Reason: Constipation Enoxaparin Sodium (Lovenox) 40 mg SQ DAILY [facility] Last Admin: 04/12/17 08:58 Dose: 40 mg Famotidine (Pepcid) 20 mg PO BID [facility] Last Admin: 04/12/17 08:58 Dose: 20 mg Guaifenesin/Codeine Phosphate (Robitussin Ac) 10 ml PO Q4HP PRN PRN Reason: Cough Last Admin: 04/12/17 08:58 Dose: 10 ml Piperacillin Sod/Tazobactam (Sod 3.375 gm/ Dextrose) 50 mls @ 100 mls/hr IV Q6H [facility] Last Infusion: 04/12/17 06:28 Dose: Infused Magnesium Hydroxide (Milk Of Magnesia) 30 ml PO DAILYP PRN PRN Reason: Constipation Methylprednisolone Sodium Succinate (Solu-Medrol) 40 mg IV Q12 [facility] Last Admin: 04/12/17 08:58 Dose: 40 mg Ondansetron HCl (Zofran) 4 mg IV Q4HP PRN PRN Reason: Nausea And Vomiting Medical - PN: A/P - Time Spent With Patient Total time spent is greater than 50% in coordination of care (as documented) at patient's floor/unit and/or counseling patient: 25 - 35 minutes (1) COPD exacerbation Status: Acute Current Visit: Yes (2) History of tobacco abuse Status: Chronic Current Visit: Yes (3) SIRS (systemic inflammatory response syndrome) Status: Acute Current Visit: Yes (4) Lymphopenia Status: Acute Current Visit: Yes (5) Bronchitis Status: Acute Current Visit: No (6) Pneumonia of both lower lobes Status: Acute Current Visit: Yes - Narrative A/P Narrative: #1. Pulmonary/infectious disease. - This patient presents with fever, cough, hypoxia, leukocytosis consistent with SIRS syndrome . chest x-ray today confirms bibasilar pneumonia, as well as right upper lobe fibrosis. sputum appeaed Gram stain showed gram-negative rods, but culture is read as normal. . he is responding, somewhat slowly, to aggressive management. Continue this for now. I reviewed his case and course with Dr. Krystina madison, and he feels that the patient could possibly have aspiration pneumonia. I discontinued Rocephin, and started Zosyn last night. - Robitussin with codeine,for a cough that is quite aggravating. -Continue aggressive pulmonary toilet. -continue IV antibiotics- Zosyn and azithromycin, telemetry, pulse oximetry. -Oxygen, nebulized bronchodilators. -IV steroids--weaning. -Blood cultures negative so far. - sputum cultures reported as normal.. -Regarding hypoxia and tachycardia, d-dimer, BNP troponin were all within normal limits. -patient should follow-up with pulmonary after discharge Dr. Hightower recommended we wait until his current pneumonia is cleared. He will plan on doing a chest CT scan in approximately 4-6 weeks. #2. History of tobacco abuse. patient has been abstinent for approximately 3-6 months. #3. CODE STATUS:full code. #4. DVT prophylaxis:Subcutaneous Lovenox. #5. Metabolic/renal. -Patient presents with anion gap acidosis. etiology uncertain. - resolved. -hypomagnesemia. This was replaced IV -- resolved. #6. Hematologic. -Mild lymphopenia. this is persistent, that may be due to acute illness. If it does persist, consider HIV and hepatitis screening. -the patient has a low-grade anemia as well. He appears to have severe iron deficiency. He has not received any routine health screenings, and is overdue for screening colonoscopy, especially given his family history of colon cancer. -Start oral iron replacement. -Check stool cards. - Refer to GI or surgery, at discharge, for screening colonoscopy. -leukocytosis, likely aggravated by IV steroids. this has been quite slow to improve. Continue to follow. #7. Hyperglycemia. -Glucose has been elevated the last few days, with no history of diabetes. I expect this is just a reaction to the steroids. Continue to follow as we wean steroids. this visit has taken approximately 30 minutes so far today, to review test results, interview and examine the patient,review plan of care with the patient and his , as well as nursing, and write orders. Medical - PN: Qual - VTE Deep Vein Thrombosis/Pulmonary Embolism Present on Admission: No
[2017-04-12] MEDS ORDERED: methylPREDNISolone SOD SUCC 40 MG/ML VIAL IV SCH (21:00)
[2017-04-13] MEDS: IPRATROPIUM/ALBUTEROL 3 ML AMPUL.NEB NEB SCH ×5 (01:26→19:05)
[2017-04-13] MEDS: PIPERACILLIN SODIUM/TAZOBACTAM 3.375 GM in DEXTROSE 5% IN WATER 50 ML IV SCH ×4 (06:01→23:26)
[2017-04-13 06:16] LABS: Basophils # (Auto) 0 K/mcL (0.0-0.3); Basophils % (Auto) 0 % (0.0-2.0); Eosinophils # (Auto) 0.1 K/mcL (0.0-0.7); Eosinophils % (Auto) 0.4 % (0.0-7.0); Granulocytes % (Auto) 89.7 % (38.0-78.0); Lymphocytes # (Auto) 0.9 K/mcL (1.5-4.8); Lymphocytes % (Auto) 5.3 % (15.5-49.0); Mean Cell Volume 90.1 fL (80.0-100.0); Mean Corpuscular HGB Conc 33.3 g/dL (31.0-36.0); Monocytes # (Auto) 0.8 K/mcL (0.1-0.9); Monocytes % (Auto) 4.6 % (1.0-12.0); Platelet Count 260 K/mcL (140-440); RBC 4.06 M/mcL (4.50-5.90); Red Cell Distribution Width 14.4 % (11.5-14.5)
[2017-04-13 06:41] LABS: ALT/SGPT 17 U/l (0-40); Albumin 3.3 gm/dL (3.2-5.2); Alkaline Phosphatase 57 U/L (39-117); Bilirubin,Direct < 0.2 mg/dL (0.0-0.3); Blood Urea Nitrogen 18 mg/dl (6-20); Gamma Glutamyl Transpeptidase 11 U/L (8-61); Magnesium 2.1 mg/dL (1.6-2.5); Uric Acid 3.3 mg/dL (2.5-8.0)
[2017-04-13] MEDS: ENOXAPARIN 40 MG/0.4 ML SYRINGE SQ SCH (08:37)
[2017-04-13] MEDS: FAMOTIDINE 20 MG TABLET PO SCH ×2 (08:37→20:50)
[2017-04-13] MEDS: guaiFENesin/CODEINE 10 ML UDC PO PRN ×2 (08:57→18:38)
[2017-04-13] MEDS ORDERED: methylPREDNISolone SOD SUCC 40 MG/ML VIAL IV SCH (09:00)
[2017-04-13] MEDS ORDERED: methylPREDNISolone SOD SUCC 40 MG/ML VIAL IV ONE (09:00)
--- NOTE | 2017-04-13 09:35 | Internal Med Progress Note ---
Medical - PN: Subj Patient information: Note initiated : 04/13/17 at 9:31 am Service Date, if different from initiated Date: [] Patient: Lizandro Spangler 56 y/o M admitted on 04/09/17 for Cough, Shortness of Breath/Pneumonia. Chief Complaint: [] Interval history: april 09, 2017: History of present illness: Mr. Spangler is a 56 year old male who was seen in our emergency room and treated for bronchitis one year ago. He had a long-standing history of smoking, but says he quit about 1 year ago. He does not see a doctor regularly. He says he was in his normal state of health until about 3 days ago, when he developed a cough productive of phlegm, as well as a runny nose. He also noted the onset of fever and chills He has been having a headache when he coughs. His chest has been feeling tight. He's had some mild nausea. He presented to the emergency room today, and was noted to have hypoxia on room air. White blood cell count was elevated. He was treated aggressively with bronchodilators , IV steroids, IV antibiotics, and oxygen, but had persistent symptoms and therefore was referred for admission. He otherwise denies new eye or ear symptoms sinus pain, sore throat lymphadenopathy, chest pain or palpitations, abdominal pain, vomiting, diarrhea or constipation, bright red blood per rectum, dysuria. April 10: this morning, the patient says he was up a lot during the night coughing. He still has a cough productive of very large amounts of phlegm. He does think that his shortness of breath is mildly improved but he still feels quite fatigued. He did have a fever again this morning. He still notes subjective wheezing as well.Otherwise,his is here with him this morning. They both agree that he seems a little better today. He denies headaches or dizziness sore throat, chest pain or palpitations, abdominal pain, nausea or vomiting, diarrhea or constipation, dysuria. sputum is growing gram-negative rods on preliminary report. April 11: today,the patient feels he is improved, compared with yesterday. He continues to have a fairly horrendous cough which is productive of a large amount of phlegm. Walking and talking seem to trigger the cough. But overall, he does feel better. He has not felt feverish today. he continues to have mild dyspnea with exertion. he continues to require supplemental oxygen. He otherwise denies headaches or dizziness, chest pain or palpitations, abdominal pain, nausea or vomiting, diarrhea or constipation, dysuria. April 12: he continues to improve daily, but also continues to have mild dyspnea with exertion, and continues to require supplemental oxygen. His cough is still productive of large amounts of phlegm. He otherwise denies fever or chills, sore throat, chest pain or palpitations and nausea or vomiting or diarrhea, or dysuria. 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 April 13: Pt seen examined, no acute overnight events, still has shortness of breath on activity as well as cough, he feels that overall his symptoms are getting better. The patient at baseline is able to ambulate at will with no limitations in ET. He remains on oxygen. Pertinent ROS: Denies headache, dizziness Denies chest pain, palpitations Cough and sob on activity present but improving. Denies abdominal pain, nausea or vomiting. - Constitutional Vitals: Vital Signs Temp Pulse Resp BP Pulse Ox 98.2 F 101 H 20 127/82 94 04/13/17 06:20 04/13/17 07:19 04/13/17 07:19 04/13/17 06:20 04/13/17 07:19 Period Temp Pulse Resp BP Sys/Reed Pulse Ox Last 24 Hr 97.5 F-99.5 F 86-101 18-22 117-136/73-82 89-94 Intake and Output 04/12/17 04/13/17 04/13/17 21:59 05:59 13:59 Intake Total 590 / 590 490 / 490 37 / 37 Output Total 1800 / 1800 800 / 800 Balance -1210 / -1210 -310 / -310 37 / 37 Weight 155 lb 8 oz Intake & Output: Intake & Output 04/12/17 04/13/17 04/13/17 21:59 05:59 13:59 Intake Total 590 / 590 490 / 490 37 / 37 Output Total 1800 / 1800 800 / 800 Balance -1210 / -1210 -310 / -310 37 / 37 Weight 155 lb 8 oz Intake: IV 50 / 50 50 / 50 37 / 37 Zosyn 3.375 gm In 50 / 50 50 / 50 37 / 37 Dextrose 5% in Water 50 ml @ 100 mls/hr IV Q6H [facility] Rx#:[id number] Oral 540 / 540 440 / 440 Output: Void Amount 1800 / 1800 800 / 800 Other: Meal Dinner Percent of Meal Consumed 100% Feeding Ability Independent Exam: Constitutional; Afebrile, cooperative, alert, not in distress. Eyes- No icterus, , No periorbital swelling Ears- Ext ear normal, hearing normal to conversation. Neck- Midline trachea, supple Respiratory system: Air Entry equal on both sides,prolonged exp phase, loretta rhonchi. CVS- Rate rhythm regular, S1,S2 heard, no gallop, no rub. Abdomen- Soft nontender abdomen, no organomegaly, no tenderness, no guarding or rigidity, CONTINUOUS IMPROVEMENT DIRECTOR- AOOx3, moving all extremities, no gross focal deficit noted. Medical - PN: Obj Da - Labs CBC & Chem 7: 04/13/17 04:30 04/13/17 04:30 Labs: Abnormal Lab Results 04/13/17 04/13/17 04/12/17 04:30 04:30 04:10 WBC 17.6 H RBC 4.06 L Hgb 12.2 L Hct 36.6 L Gran % 89.7 H Lymph % (Auto) 5.3 L Gran # 15.8 H Lymph # 0.9 L Glucose 155 H 192 H Calcium 8.5 L Iron TIBC Transferrin % Sat 04/12/17 04/11/17 04/11/17 04:10 03:28 03:28 WBC 20.1 H 19.6 H RBC 3.93 L 4.12 L Hgb 11.9 L 12.2 L Hct 35.4 L 35.8 L Gran % 92.5 H 93.7 H Lymph % (Auto) 3.6 L 2.5 L Gran # 18.6 H 18.4 H Lymph # 0.7 L 0.5 L Glucose Calcium Iron 24 L TIBC 166 L Transferrin % Sat 14 L Meds: Medications Acetaminophen (Tylenol) 650 mg PO Q6HP PRN PRN Reason: PAIN/FEVER > 101 Last Admin: 04/11/17 20:40 Dose: 650 mg Albuterol/Ipratropium (Duoneb) 3 ml NEB Q4HRT [facility] Docusate Sodium (Colace) 100 mg PO BIDP PRN PRN Reason: Constipation Enoxaparin Sodium (Lovenox) 40 mg SQ DAILY [facility] Last Admin: 04/13/17 08:37 Dose: 40 mg Famotidine (Pepcid) 20 mg PO BID [facility] Last Admin: 04/13/17 08:37 Dose: 20 mg Guaifenesin/Codeine Phosphate (Robitussin Ac) 10 ml PO Q4HP PRN PRN Reason: Cough Last Admin: 04/13/17 08:57 Dose: 10 ml Piperacillin Sod/Tazobactam (Sod 3.375 gm/ Dextrose) 50 mls @ 100 mls/hr IV Q6H [facility] Last Infusion: 04/13/17 06:23 Dose: 0 mls/hr Magnesium Hydroxide (Milk Of Magnesia) 30 ml PO DAILYP PRN PRN Reason: Constipation Methylprednisolone Sodium Succinate (Solu-Medrol) 40 mg IV QDAY [facility] Ondansetron HCl (Zofran) 4 mg IV Q4HP PRN PRN Reason: Nausea And Vomiting Medical - PN: A/P - Time Spent With Patient Total time spent is greater than 50% in coordination of care (as documented) at patient's floor/unit and/or counseling patient: - Narrative A/P Narrative: a/p Pneumonia: Community Acquired, appreciate pulm consult, possible aspiration component, on zosyn to cover anaerobes. , patient improving gradually. sputum gram stain noted, blood culture is neg. Pt supposed to be on zithromax, but MAR review shows its not on the list. Will start the patient on zithromax 500mg today and 250 x 4 days for atypical coverage. 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 Acute hypoxic respiratory failure: Due to COPD and PNA, continue treatment as above. Pulmonary Fibrosis: Noted on CXR, will need outpatient follow up by pulm after pna is resolved. Lymphopenia: Etiology? due to acute infection? vs chr issue, PCP follow up as outpatient. Hyperglycemia: stable glucose values, Anemia : HB stable, follow up with PCP as outpatient may need COlonoscopy given h/o colon cancer in father. Code Full DVT lovenox sq Medical - PN: Qual - VTE Deep Vein Thrombosis/Pulmonary Embolism Present on Admission: No
[2017-04-13] MEDS ORDERED: AZITHROMYCIN 250 MG TABLET PO ONE (09:40)
[2017-04-14] MEDS ORDERED: MAGNESIUM HYDROXIDE 30 ML ORAL.SUSP PO PRN (00:55)
[2017-04-14] MEDS ORDERED: DOCUSATE SODIUM 100 MG CAPSULE PO PRN (00:55)
[2017-04-14] MEDS ORDERED: ONDANSETRON 4 MG/2 ML VIAL IV PRN (00:55)
[2017-04-14] MEDS ORDERED: ACETAMINOPHEN 325 MG TABLET PO PRN (00:55)
[2017-04-14] MEDS ORDERED: IPRATROPIUM/ALBUTEROL 3 ML AMPUL.NEB NEB ONE ×2 (03:34→06:51)
[2017-04-14] MEDS: IPRATROPIUM/ALBUTEROL 3 ML AMPUL.NEB NEB SCH ×6 (03:37→23:03)
[2017-04-14] MEDS: PIPERACILLIN SODIUM/TAZOBACTAM 3.375 GM in DEXTROSE 5% IN WATER 50 ML IV SCH ×3 (05:25→17:52)
[2017-04-14 07:30] LABS: Basophils # (Auto) 0 K/mcL (0.0-0.3); Basophils % (Auto) 0.1 % (0.0-2.0); Eosinophils # (Auto) 0.1 K/mcL (0.0-0.7); Eosinophils % (Auto) 0.8 % (0.0-7.0); Granulocytes % (Auto) 80.3 % (38.0-78.0); Lymphocytes % (Auto) 12.4 % (15.5-49.0); Mean Cell Volume 89.8 fL (80.0-100.0); Mean Corpuscular HGB Conc 33.9 g/dL (31.0-36.0); Mean Corpuscular Hemoglobin 30.4 pg (26.0-34.0); Monocytes % (Auto) 6.4 % (1.0-12.0); Platelet Count 295 K/mcL (140-440); RBC 4.27 M/mcL (4.50-5.90); Red Cell Distribution Width 14.8 % (11.5-14.5)
[2017-04-14 08:25] LABS: ALT/SGPT 18 U/l (0-40); Albumin 3.4 gm/dL (3.2-5.2); Albumin/Globulin Ratio 1.1 (1.0-2.3); Alkaline Phosphatase 60 U/L (39-117); Bilirubin,Direct < 0.2 mg/dL (0.0-0.3); Blood Urea Nitrogen 16 mg/dl (6-20); Gamma Glutamyl Transpeptidase 14 U/L (8-61); Magnesium 2.1 mg/dL (1.6-2.5); Uric Acid 3.5 mg/dL (2.5-8.0)
[2017-04-14] MEDS: FAMOTIDINE 20 MG TABLET PO SCH ×2 (08:51→21:47)
[2017-04-14] MEDS: methylPREDNISolone SOD SUCC 40 MG/ML VIAL IV SCH (08:51)
[2017-04-14] MEDS: ENOXAPARIN 40 MG/0.4 ML SYRINGE SQ SCH (08:51)
[2017-04-14] MEDS: AZITHROMYCIN 250 MG TABLET PO SCH (08:52)
[2017-04-14] MEDS ORDERED: AZITHROMYCIN 250 MG TABLET PO SCH (09:00)
[2017-04-14] MEDS ORDERED: methylPREDNISolone SOD SUCC 40 MG/ML VIAL IV SCH (09:00)
--- NOTE | 2017-04-14 11:24 | Internal Med Progress Note ---
Medical - PN: Subj Patient information: Note initiated : 04/14/17 at 11:22 am Service Date, if different from initiated Date: [] Patient: Lizandro Spangler 56 y/o M admitted on 04/09/17 for Cough, Shortness of Breath/Pneumonia. Chief Complaint: [] Interval history: april 09, 2017: History of present illness: Mr. Spangler is a 56 year old male who was seen in our emergency room and treated for bronchitis one year ago. He had a long-standing history of smoking, but says he quit about 1 year ago. He does not see a doctor regularly. He says he was in his normal state of health until about 3 days ago, when he developed a cough productive of phlegm, as well as a runny nose. He also noted the onset of fever and chills He has been having a headache when he coughs. His chest has been feeling tight. He's had some mild nausea. He presented to the emergency room today, and was noted to have hypoxia on room air. White blood cell count was elevated. He was treated aggressively with bronchodilators , IV steroids, IV antibiotics, and oxygen, but had persistent symptoms and therefore was referred for admission. He otherwise denies new eye or ear symptoms sinus pain, sore throat lymphadenopathy, chest pain or palpitations, abdominal pain, vomiting, diarrhea or constipation, bright red blood per rectum, dysuria. April 10: this morning, the patient says he was up a lot during the night coughing. He still has a cough productive of very large amounts of phlegm. He does think that his shortness of breath is mildly improved but he still feels quite fatigued. He did have a fever again this morning. He still notes subjective wheezing as well.Otherwise,his is here with him this morning. They both agree that he seems a little better today. He denies headaches or dizziness sore throat, chest pain or palpitations, abdominal pain, nausea or vomiting, diarrhea or constipation, dysuria. sputum is growing gram-negative rods on preliminary report. April 11: today,the patient feels he is improved, compared with yesterday. He continues to have a fairly horrendous cough which is productive of a large amount of phlegm. Walking and talking seem to trigger the cough. But overall, he does feel better. He has not felt feverish today. he continues to have mild dyspnea with exertion. he continues to require supplemental oxygen. He otherwise denies headaches or dizziness, chest pain or palpitations, abdominal pain, nausea or vomiting, diarrhea or constipation, dysuria. April 12: he continues to improve daily, but also continues to have mild dyspnea with exertion, and continues to require supplemental oxygen. His cough is still productive of large amounts of phlegm. He otherwise denies fever or chills, sore throat, chest pain or palpitations and nausea or vomiting or diarrhea, or dysuria. 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 April 13: Pt seen examined, no acute overnight events, still has shortness of breath on activity as well as cough, he feels that overall his symptoms are getting better. The patient at baseline is able to ambulate at will with no limitations in ET. He remains on oxygen. April 14: Pt seen examined, no acute overnight events, he needed a letter for jury duty which was provided today, Pt still has cough and shortness of breath, he remains on oxygen. He is able to ambulate but gets sob on activity. He is on 1.5L oxygen. Pertinent ROS: Denies headache, dizziness Denies chest pain, palpitations Present cough and shortness of breath Denies abdominal pain, nausea or vomiting. - Constitutional Vitals: Vital Signs Temp Pulse Resp BP Pulse Ox 97.7 F 110 H 18 132/89 91 04/14/17 06:55 04/14/17 11:12 04/14/17 11:12 04/14/17 06:55 04/14/17 07:12 Period Temp Pulse Resp BP Sys/Reed Pulse Ox Last 24 Hr 97.7 F-99.0 F 98-110 18-22 126-136/65-89 89-94 Intake and Output 04/13/17 04/14/17 04/14/17 21:59 05:59 13:59 Intake Total 1470 / 1470 460 / 460 480 / 480 Output Total 1425 / 1425 275 / 275 1400 / 1400 Balance 45 / 45 185 / 185 -920 / -920 Weight 152 lb Intake & Output: Intake & Output 06/04/17 06/05/17 06/05/17 21:59 05:59 13:59 Intake Total 1470 / 1470 460 / 460 480 / 480 Output Total 1425 / 1425 275 / 275 1400 / 1400 Balance 45 / 45 185 / 185 -920 / -920 Weight 152 lb Intake: IV 50 / 50 100 / 100 Zosyn 3.375 gm In 50 / 50 100 / 100 Dextrose 5% in Water 50 ml @ 100 mls/hr IV Q6H [facility] Rx#:[id number] Oral 1420 / 1420 360 / 360 480 / 480 Output: Void Amount 1425 / 1425 275 / 275 1400 / 1400 Other: Meal Dinner Breakfast Percent of Meal Consumed 100% 100% Feeding Ability Independent Exam: Constitutional; Afebrile, cooperative, alert, not in distress. Eyes- No icterus, , No periorbital swelling Ears- Ext ear normal, hearing normal to conversation. Neck- Midline trachea, supple Respiratory system: Air Entry equal on both sides, loretta significant rhonchi, prolonged exp phase. CVS- Rate rhythm regular, S1,S2 heard, no gallop, no rub. Abdomen- Soft nontender abdomen, no organomegaly, no tenderness, no guarding or rigidity, ILLUSIONIST- AOOx3, moving all extremities, no gross focal deficit noted. Medical - PN: Obj Da - Labs CBC & Chem 7: 04/14/17 05:15 04/14/17 05:15 Labs: Abnormal Lab Results 04/14/17 04/13/17 04/13/17 05:15 04:30 04:30 WBC 16.3 H 17.6 H RBC 4.27 L 4.06 L Hgb 13.0 L 12.2 L Hct 38.3 L 36.6 L RDW 14.8 H Gran % 80.3 H 89.7 H Lymph % (Auto) 12.4 L 5.3 L Gran # 13.1 H 15.8 H Lymph # 0.9 L [place] # 1.0 H Glucose 155 H Calcium 04/12/17 04/12/17 04:10 04:10 WBC 20.1 H RBC 3.93 L Hgb 11.9 L Hct 35.4 L RDW Gran % 92.5 H Lymph % (Auto) 3.6 L Gran # 18.6 H Lymph # 0.7 L [place] # Glucose 192 H Calcium 8.5 L Meds: Medications Acetaminophen (Tylenol) 650 mg PO Q6HP PRN PRN Reason: PAIN/FEVER > 101 Albuterol/Ipratropium (Duoneb) 3 ml NEB Q4HRT [facility] Last Admin: 04/14/17 11:09 Dose: 3 ml Azithromycin (Zithromax) 250 mg PO DAILY [facility] Stop: 04/17/17 09:01 Last Admin: 04/14/17 08:52 Dose: 250 mg Docusate Sodium (Colace) 100 mg PO BIDP PRN PRN Reason: Constipation Enoxaparin Sodium (Lovenox) 40 mg SQ DAILY [facility] Last Admin: 04/14/17 08:51 Dose: 40 mg Famotidine (Pepcid) 20 mg PO BID [facility] Last Admin: 04/14/17 08:51 Dose: 20 mg Guaifenesin/Codeine Phosphate (Robitussin Ac) 10 ml PO Q4HP PRN PRN Reason: Cough Piperacillin Sod/Tazobactam (Sod 3.375 gm/ Dextrose) 50 mls @ 100 mls/hr IV Q6H [facility] Last Infusion: 04/14/17 05:55 Dose: Infused Magnesium Hydroxide (Milk Of Magnesia) 30 ml PO DAILYP PRN PRN Reason: Constipation Methylprednisolone Sodium Succinate (Solu-Medrol) 40 mg IV QDAY [facility] Last Admin: 04/14/17 08:51 Dose: 40 mg Ondansetron HCl (Zofran) 4 mg IV Q4HP PRN PRN Reason: Nausea And Vomiting Medical - PN: A/P - Time Spent With Patient Total time spent is greater than 50% in coordination of care (as documented) at patient's floor/unit and/or counseling patient: - Narrative A/P Narrative: a/p Pneumonia: Community Acquired, appreciate pulm consult, possible aspiration component, on zosyn to cover anaerobes, and zithromax, Repeat CXR today 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 Acute hypoxic respiratory failure: Due to COPD and PNA, continue treatment as above, still on 1.5L oxygen, Pulmonary Fibrosis: Noted on CXR, will need outpatient follow up by pulm after pna is resolved. Lymphopenia: Etiology? due to acute infection? vs chr issue, PCP follow up as outpatient. counts back to normal Hyperglycemia: stable glucose values, Anemia : HB stable, follow up with PCP as outpatient may need Colonoscopy given h/o colon cancer in father. Code Full DVT lovenox sq Medical - PN: Qual - VTE Deep Vein Thrombosis/Pulmonary Embolism Present on Admission: No
--- NOTE | 2017-04-14 11:55 | XRay Report ---
CLINICAL INFORMATION: Shortness of breath - follow-up bibasilar pneumonia COMPARISON: 04/10/2017 FINDINGS: Heart size, mediastinum and pulmonary vessels are unremarkable. Bilateral lower lobe infiltrates, more prominent on the right side, are much better aerated compared to the study four days ago. No effusions. Bones and soft tissues normal. IMPRESSION: Moderate, vague, bilateral lower lobe infiltrates - improved from study four days ago Interpreted and Authenticated by: Bola Stover 04/14/17
[2017-04-14] MEDS: guaiFENesin/CODEINE 10 ML UDC PO PRN ×2 (14:00→21:47)
[2017-04-15] MEDS: PIPERACILLIN SODIUM/TAZOBACTAM 3.375 GM in DEXTROSE 5% IN WATER 50 ML IV SCH ×5 (00:25→23:44)
[2017-04-15] MEDS: IPRATROPIUM/ALBUTEROL 3 ML AMPUL.NEB NEB SCH ×7 (02:57→23:17)
[2017-04-15 06:21] LABS: Basophils # (Auto) 0 K/mcL (0.0-0.3); Basophils % (Auto) 0.1 % (0.0-2.0); Eosinophils # (Auto) 0.3 K/mcL (0.0-0.7); Eosinophils % (Auto) 1.5 % (0.0-7.0); Granulocytes % (Auto) 80.2 % (38.0-78.0); Lymphocytes % (Auto) 11.7 % (15.5-49.0); Mean Cell Volume 89.3 fL (80.0-100.0); Mean Corpuscular HGB Conc 33.5 g/dL (31.0-36.0); Mean Corpuscular Hemoglobin 29.9 pg (26.0-34.0); Monocytes # (Auto) 1.1 K/mcL (0.1-0.9); Monocytes % (Auto) 6.5 % (1.0-12.0); Platelet Count 318 K/mcL (140-440); RBC 4.46 M/mcL (4.50-5.90); Red Cell Distribution Width 14.4 % (11.5-14.5)
[2017-04-15 06:45] LABS: ALT/SGPT 18 U/l (0-40); Albumin 3.4 gm/dL (3.2-5.2); Alkaline Phosphatase 52 U/L (39-117); Bilirubin,Direct < 0.2 mg/dL (0.0-0.3); Blood Urea Nitrogen 17 mg/dl (6-20); Gamma Glutamyl Transpeptidase 14 U/L (8-61); Magnesium 2.2 mg/dL (1.6-2.5); Uric Acid 3.5 mg/dL (2.5-8.0)
--- NOTE | 2017-04-15 08:20 | Pulmonology Consult Note ---
History of Present Illness Patient information: Note initiated : 04/15/17 at 8:17 am Service Date, if different from initiated Date: [] Patient: Lizandro Spangler 56 y/o M admitted on 04/09/17 for Cough, Shortness of Breath/Pneumonia. Chief Complaint: [] Review of Systems Constitutional: chills Respiratory: no dyspnea Medications and Allergies Home Medications Medication Instructions Recorded Confirmed Type No Known Home Meds [No Known Home 04/09/17 04/09/17 History Meds] Allergies Allergy/AdvReac Type Severity Reaction Status Date / Time No Known Drug Allergies Allergy Unverified 01/28/16 20:13 Physical Examination Vital signs: Temp Pulse Resp BP Pulse Ox 99.8 F H 117 H 18 116/72 86 L 04/15/17 08:07 04/15/17 08:07 04/15/17 08:07 04/15/17 08:07 04/15/17 08:07 Results - Laboratory Findings CBC and BMP: 04/15/17 05:04 04/15/17 05:04 PT/INR, D-dimer D-Dimer < 0.27 ug/ml (0.00-0.40) 04/09/17 20:56 Abnormal lab findings: Abnormal Labs 04/09/17 04/10/17 04/10/17 20:56 03:41 03:41 WBC 16.8 H RBC 4.31 L Hgb 12.9 L Hct 38.5 L RDW Gran % 92.8 H Lymph % (Auto) 2.5 L Gran # 15.6 H Lymph # 0.4 L [place] # Carbon Dioxide 18 L 20 L Anion Gap 18.0 H 17.0 H Glucose 161 H 184 H Calcium 7.9 L 8.1 L Phosphorus 2.1 L Magnesium 1.5 L Iron TIBC Transferrin % Sat 04/11/17 04/11/17 04/12/17 03:28 03:28 04:10 WBC 19.6 H 20.1 H RBC 4.12 L 3.93 L Hgb 12.2 L 11.9 L Hct 35.8 L 35.4 L RDW Gran % 93.7 H 92.5 H Lymph % (Auto) 2.5 L 3.6 L Gran # 18.4 H 18.6 H Lymph # 0.5 L 0.7 L [place] # Carbon Dioxide Anion Gap Glucose Calcium Phosphorus Magnesium Iron 24 L TIBC 166 L Transferrin % Sat 14 L 04/12/17 04/13/17 04/13/17 04:10 04:30 04:30 WBC 17.6 H RBC 4.06 L Hgb 12.2 L Hct 36.6 L RDW Gran % 89.7 H Lymph % (Auto) 5.3 L Gran # 15.8 H Lymph # 0.9 L [place] # Carbon Dioxide Anion Gap Glucose 192 H 155 H Calcium 8.5 L Phosphorus Magnesium Iron TIBC Transferrin % Sat 04/14/17 04/15/17 05:15 05:04 WBC 16.3 H 17.2 H RBC 4.27 L 4.46 L Hgb 13.0 L 13.3 L Hct 38.3 L 39.8 L RDW 14.8 H Gran % 80.3 H 80.2 H Lymph % (Auto) 12.4 L 11.7 L Gran # 13.1 H 13.8 H Lymph # [place] # 1.0 H 1.1 H Carbon Dioxide Anion Gap Glucose Calcium Phosphorus Magnesium Iron TIBC Transferrin % Sat
[2017-04-15] MEDS: ENOXAPARIN 40 MG/0.4 ML SYRINGE SQ SCH (08:35)
[2017-04-15] MEDS: AZITHROMYCIN 250 MG TABLET PO SCH (08:35)
[2017-04-15] MEDS: FAMOTIDINE 20 MG TABLET PO SCH ×2 (08:35→20:06)
[2017-04-15] MEDS: methylPREDNISolone SOD SUCC 40 MG/ML VIAL IV SCH (08:36)
[2017-04-15] MEDS ORDERED: 0.9 % SODIUM CHLORIDE 1,000 ML IV ONE (09:41)
--- NOTE | 2017-04-15 14:30 | Internal Med Progress Note ---
Medical - PN: Subj Patient information: Note initiated : 04/15/17 at 2:27 pm Service Date, if different from initiated Date: [] Patient: Lizandro Spangler 56 y/o M admitted on 04/09/17 for Cough, Shortness of Breath/Pneumonia. Chief Complaint: [] Interval history: april 09, 2017: History of present illness: Mr. Spangler is a 56 year old male who was seen in our emergency room and treated for bronchitis one year ago. He had a long-standing history of smoking, but says he quit about 1 year ago. He does not see a doctor regularly. He says he was in his normal state of health until about 3 days ago, when he developed a cough productive of phlegm, as well as a runny nose. He also noted the onset of fever and chills He has been having a headache when he coughs. His chest has been feeling tight. He's had some mild nausea. He presented to the emergency room today, and was noted to have hypoxia on room air. White blood cell count was elevated. He was treated aggressively with bronchodilators , IV steroids, IV antibiotics, and oxygen, but had persistent symptoms and therefore was referred for admission. He otherwise denies new eye or ear symptoms sinus pain, sore throat lymphadenopathy, chest pain or palpitations, abdominal pain, vomiting, diarrhea or constipation, bright red blood per rectum, dysuria. April 10: this morning, the patient says he was up a lot during the night coughing. He still has a cough productive of very large amounts of phlegm. He does think that his shortness of breath is mildly improved but he still feels quite fatigued. He did have a fever again this morning. He still notes subjective wheezing as well.Otherwise,his is here with him this morning. They both agree that he seems a little better today. He denies headaches or dizziness sore throat, chest pain or palpitations, abdominal pain, nausea or vomiting, diarrhea or constipation, dysuria. sputum is growing gram-negative rods on preliminary report. April 11: today,the patient feels he is improved, compared with yesterday. He continues to have a fairly horrendous cough which is productive of a large amount of phlegm. Walking and talking seem to trigger the cough. But overall, he does feel better. He has not felt feverish today. he continues to have mild dyspnea with exertion. he continues to require supplemental oxygen. He otherwise denies headaches or dizziness, chest pain or palpitations, abdominal pain, nausea or vomiting, diarrhea or constipation, dysuria. April 12: he continues to improve daily, but also continues to have mild dyspnea with exertion, and continues to require supplemental oxygen. His cough is still productive of large amounts of phlegm. He otherwise denies fever or chills, sore throat, chest pain or palpitations and nausea or vomiting or diarrhea, or dysuria. 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 April 13: Pt seen examined, no acute overnight events, still has shortness of breath on activity as well as cough, he feels that overall his symptoms are getting better. The patient at baseline is able to ambulate at will with no limitations in ET. He remains on oxygen. April 14: Pt seen examined, no acute overnight events, he needed a letter for jury duty which was provided today, Pt still has cough and shortness of breath, he remains on oxygen. He is able to ambulate but gets sob on activity. He is on 1.5L oxygen. April 15: pt seen examined, no acute overnight events, pt still has cough with greenish Yellow expectoration. He is still on oxygen and has sob on ambulation. At rest he is comfortable. I reviewed the case with Dr Hightower [facility], who advised to check sputum for fungal etiology, also influenza. Pt otheerwise has no new concern. Pertinent ROS: Denies headache, dizziness Denies chest pain, palpitations Present cough and shortness of breath (improving) Denies abdominal pain, nausea or vomiting. - Constitutional Vitals: Vital Signs Temp Pulse Resp BP Pulse Ox 98.2 F 100 H 16 122/80 87 L 04/15/17 10:59 04/15/17 10:59 04/15/17 10:59 04/15/17 10:59 04/15/17 10:59 Period Temp Pulse Resp BP Sys/Reed Pulse Ox Last 24 Hr 98.2 F-99.8 F 99-117 16-24 116-132/72-85 86-92 Intake and Output 04/15/17 04/15/17 04/15/17 05:59 13:59 21:59 Intake Total 450 / 450 570 / 570 Output Total 500 / 500 400 / 400 Balance -50 / -50 170 / 170 Intake & Output: Intake & Output 04/15/17 04/15/17 04/15/17 05:59 13:59 21:59 Intake Total 450 / 450 570 / 570 Output Total 500 / 500 400 / 400 Balance -50 / -50 170 / 170 Intake: IV 50 / 50 50 / 50 Zosyn 3.375 gm In 50 / 50 50 / 50 Dextrose 5% in Water 50 ml @ 100 mls/hr IV Q6H [facility] Rx#:[id number] Oral 400 / 400 520 / 520 Output: Void Amount 500 / 500 400 / 400 Other: Meal Lunch Percent of Meal Consumed 100% Feeding Ability Independent # Bowel Movements 1 Exam: Constitutional; Afebrile, cooperative, alert, not in distress. Eyes- No icterus, , No periorbital swelling Ears- Ext ear normal, hearing normal to conversation. Neck- Midline trachea, supple Respiratory system: Air Entry equal on both sides,loretta rhonich, on exp, mildly prolonged exp phase. CVS- Rate rhythm regular, S1,S2 heard, no gallop, no rub. 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 Medical - PN: Obj Da - Labs CBC & Chem 7: 04/15/17 05:04 04/15/17 05:04 Labs: Abnormal Lab Results 04/15/17 04/14/17 04/13/17 05:04 05:15 04:30 WBC 17.2 H 16.3 H RBC 4.46 L 4.27 L Hgb 13.3 L 13.0 L Hct 39.8 L 38.3 L RDW 14.8 H Gran % 80.2 H 80.3 H Lymph % (Auto) 11.7 L 12.4 L Gran # 13.8 H 13.1 H Lymph # [place] # 1.1 H 1.0 H Glucose 155 H 04/13/17 04:30 WBC 17.6 H RBC 4.06 L Hgb 12.2 L Hct 36.6 L RDW Gran % 89.7 H Lymph % (Auto) 5.3 L Gran # 15.8 H Lymph # 0.9 L [place] # Glucose Meds: Medications Acetaminophen (Tylenol) 650 mg PO Q6HP PRN PRN Reason: PAIN/FEVER > 101 Albuterol/Ipratropium (Duoneb) 3 ml NEB Q4HRT [facility] Last Admin: 04/15/17 10:57 Dose: 3 ml Azithromycin (Zithromax) 250 mg PO DAILY [facility] Stop: 04/17/17 09:01 Last Admin: 04/15/17 08:35 Dose: 250 mg Docusate Sodium (Colace) 100 mg PO BIDP PRN PRN Reason: Constipation Enoxaparin Sodium (Lovenox) 40 mg SQ DAILY [facility] Last Admin: 04/15/17 08:35 Dose: 40 mg Famotidine (Pepcid) 20 mg PO BID [facility] Last Admin: 04/15/17 08:35 Dose: 20 mg Guaifenesin/Codeine Phosphate (Robitussin Ac) 10 ml PO Q4HP PRN PRN Reason: Cough Last Admin: 04/14/17 21:47 Dose: 10 ml Piperacillin Sod/Tazobactam (Sod 3.375 gm/ Dextrose) 50 mls @ 100 mls/hr IV Q6H [facility] Last Admin: 04/15/17 13:30 Dose: 100 mls/hr Magnesium Hydroxide (Milk Of Magnesia) 30 ml PO DAILYP PRN PRN Reason: Constipation Methylprednisolone Sodium Succinate (Solu-Medrol) 20 mg IV QDAY [facility] Ondansetron HCl (Zofran) 4 mg IV Q4HP PRN PRN Reason: Nausea And Vomiting Medical - PN: A/P - Time Spent With Patient Total time spent is greater than 50% in coordination of care (as documented) at patient's floor/unit and/or counseling patient: - Narrative A/P Narrative: a/p Pneumonia: Community Acquired, appreciate pulm consult, possible aspiration component, on zosyn to cover anaerobes, and zithromax, Repeat CXR shows some improvement, microbiology is negatie so far. send sputum for fungal cx, send influenza. Discussed case with pulm, Plan to CT chest tomorrow if pt does not improve. (insp and exp CT scan to look for tracheobronchomalacia) COPD Exacerbation: snf history of smoking, pt likely has 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 Acute hypoxic respiratory failure: Due to COPD and PNA, continue treatment as above, still on 1.5L oxygen, Pulmonary Fibrosis: Noted on CXR, will need outpatient follow up by pulm after pna is resolved. Lymphopenia: Etiology? due to acute infection? vs chr issue, PCP follow up as outpatient. counts back to normal now. Hyperglycemia: stable glucose values, Anemia : HB stable, follow up with PCP as outpatient may need Colonoscopy given h/o colon cancer in father. Code Full DVT lovenox sq Medical - PN: Qual - VTE Deep Vein Thrombosis/Pulmonary Embolism Present on Admission: No
[2017-04-16] MEDS: IPRATROPIUM/ALBUTEROL 3 ML AMPUL.NEB NEB SCH ×3 (03:33→11:31)
[2017-04-16] MEDS: PIPERACILLIN SODIUM/TAZOBACTAM 3.375 GM in DEXTROSE 5% IN WATER 50 ML IV SCH ×2 (05:25→11:45)
[2017-04-16 06:03] LABS: Basophils # (Auto) 0 K/mcL (0.0-0.3); Basophils % (Auto) 0.2 % (0.0-2.0); Eosinophils # (Auto) 0.3 K/mcL (0.0-0.7); Eosinophils % (Auto) 1.7 % (0.0-7.0); Lymphocytes # (Auto) 2.2 K/mcL (1.5-4.8); Lymphocytes % (Auto) 13.2 % (15.5-49.0); Mean Cell Volume 90.5 fL (80.0-100.0); Mean Corpuscular HGB Conc 33.3 g/dL (31.0-36.0); Mean Corpuscular Hemoglobin 30.1 pg (26.0-34.0); Monocytes % (Auto) 5.9 % (1.0-12.0); Platelet Count 304 K/mcL (140-440); RBC 4.34 M/mcL (4.50-5.90); Red Cell Distribution Width 14.5 % (11.5-14.5)
[2017-04-16 06:29] LABS: ALT/SGPT 18 U/l (0-40); Albumin 3.4 gm/dL (3.2-5.2); Albumin/Globulin Ratio 1.1 (1.0-2.3); Alkaline Phosphatase 47 U/L (39-117); Bilirubin,Direct < 0.2 mg/dL (0.0-0.3); Blood Urea Nitrogen 18 mg/dl (6-20); Gamma Glutamyl Transpeptidase 15 U/L (8-61); Magnesium 2.2 mg/dL (1.6-2.5); Uric Acid 4.2 mg/dL (2.5-8.0)
[2017-04-16] MEDS ORDERED: predniSONE 10 MG TABLET PO SCH (08:00)
[2017-04-16] MEDS: ENOXAPARIN 40 MG/0.4 ML SYRINGE SQ SCH (08:24)
[2017-04-16] MEDS: FAMOTIDINE 20 MG TABLET PO SCH (08:24)
[2017-04-16] MEDS: AZITHROMYCIN 250 MG TABLET PO SCH (08:24)
[2017-04-16] MEDS ORDERED: methylPREDNISolone SOD SUCC 40 MG/ML VIAL IV SCH (09:00)
--- NOTE | 2017-04-16 11:17 | Discharge Summary ---
Medical - DS: Prov Patient information: Note initiated : 04/16/17 at 11:13 am Service Date, if different from initiated Date: [] Patient: Lizandro Spangler 56 y/o M admitted on 04/09/17 for Cough, Shortness of Breath/Pneumonia. Chief Complaint: [] Date of admission: 04/09/17 20:44 Discharge date: 04/16/17 Primary care physician: PCP No Admitting clinician: Mary Guerrero Consults: 04/11/17 12:03 Consult to Physician [CONS] Routine Comment: re: ? pulmonary fibrosis, hypoxia Consulting Provider: Noam Hightower Reason For Exam: Physician to Consult Discharging clinician: [facility] - DS: Meds - Discharge Medications Prescriptions: Amoxicillin/Potassium Clav [Augmentin] 875 mg PO Q12H #10 tablet Azithromycin 250 mg PO DAILY #2 tablet Benzonatate [Tessalon Perle] 100 mg PO TID PRN #30 capsule PRN Reason: Cough Ipratropium/Albuterol Sulfate [Combivent] 2 puff INH QID #1 inhaler predniSONE [Prednisone] 5 mg PO DAILY #9 tablet Active and Home Medications: Home Medications No Known Home Meds [No Known Home Meds] 04/09/17 [History Confirmed 04/09/17 Last Taken Unknown] Medical - DS: Hosp Hospital course: Mr. Spangler is a 56 year old male admitted to the hospital with complaints of cough , fever and shortness of breath. Admitted to the hospiotal with diagnosis of COPD (new diagnosis, strong h/o smoking) PNA PNA: Loretta PNA, Needing oxygen, initially treated with rocephin, zithromax, Pulm consulted Dr hightower , who advised to consider aspiration. patient was treated with zosyn x 5 days. He will be discharged on zithromax x 2 more days to complete his course of abx and amox-clav x 5 more days. Patients aspergillus test is pending. WIll need to be followed up by the new PCP. COPD/ Reactive Airway Disease: Treated with steroids and duonebs, patient responded to treatment very well. He was hypoxic on presentation, but his hypoxia improved, and on discharge he was off oxygen saturating 90% at rest and ambulation. he will be on a steroid taper x 6 days. There was a concern for tracheobronchomalacia but given improvement in symptoms this was not pursed while in the hospital. The patient will need to follow up with a pcp in 7 days. Pulmonary fibrosis: Questionable diagnosis on X ray, will need CT as outpatient in 4-6 weeks, can be arranged by pcp Anemia, hb stable in hospital but father had h/o colon cancer, pt will need outpatient colonoscopy. He can discuss this with his PCP. The rest of the stay in the hospital was uneventful. Discharge diagnosis: PNA/ COPD Asthma - Time Spent with Patient Total time spent providing and/or coordinating discharge services: Greater than 30 minutes Medical - DS: Exam - Constitutional Vitals: Vital Signs Temp Pulse Pulse Resp BP Pulse Ox 04/16/17 09:40 14 93 04/16/17 07:12 93 04/16/17 07:11 98 H 16 93 04/16/17 07:09 100 H 16 04/16/17 06:46 97.9 F 18 123/81 93 04/16/17 05:24 93 04/16/17 03:35 98.3 F 82 16 127/76 96 04/15/17 23:56 98.0 F 94 H 16 128/78 91 04/15/17 23:22 100 H 16 04/15/17 20:09 90 04/15/17 19:55 98.4 F 116 H 16 129/82 90 04/15/17 19:19 111 H 16 04/15/17 19:13 91 04/15/17 16:00 98.2 F 108 H 20 130/82 89 L 04/15/17 15:44 108 H 20 130/82 89 L 04/15/17 14:48 114 H 16 Intake and Output 04/15/17 04/16/17 04/16/17 21:59 05:59 13:59 Intake Total 1930 / 1930 700 / 700 Output Total 2700 / 2700 675 / 675 250 / 250 Balance -770 / -770 25 / 25 -250 / -250 Intake: IV 1100 / 1100 50 / 50 Sodium Chloride 0.9% 1, 1000 / 1000 000 ml @ Wide Open IV [facility] Rx#:[id number] Zosyn 3.375 gm In 100 / 100 50 / 50 Dextrose 5% in Water 50 ml @ 100 mls/hr IV Q6H [facility] Rx#:[id number] Oral 830 / 830 650 / 650 Output: Urine Catheter Amount 1100 / 1100 Void Amount 1600 / 1600 675 / 675 250 / 250 Other: Weight 161 lb 8 oz Additional comments: Constitutional; Afebrile, cooperative, alert, not in distress. Eyes- No icterus, , No periorbital swelling Ears- Ext ear normal, hearing normal to conversation. Neck- Midline trachea, supple Respiratory system: Air Entry equal on both sides, loretta rhonchi, much improved since yesterday. CVS- Rate rhythm regular, S1,S2 heard, no gallop, no rub. Abdomen- Soft nontender abdomen, no organomegaly, no tenderness, no guarding or rigidity, [employer]- AOOx3, moving all extremities, no gross focal deficit noted. Medical - DS: Data Labs on day of discharge: Labs from last 24 hours 04/16/17 04/16/17 04/15/17 04:29 04:29 14:26 WBC 16.4 H RBC 4.34 L Hgb 13.1 L Hct 39.3 L MCV 90.5 MCH 30.1 MCHC 33.3 RDW 14.5 Plt Count 304 MPV 8.2 Gran % 79.0 H Lymph % (Auto) 13.2 L Price % (Auto) 5.9 Eos % (Auto) 1.7 Baso % (Auto) 0.2 Gran # 13.0 H Lymph # 2.2 Price # 1.0 H Eos # 0.3 Baso # 0 Differential Comment Sodium 139 Potassium 3.9 Chloride 101 Carbon Dioxide 24 Anion Gap 14.0 BUN 18 Creatinine 0.9 GFR Calculation 94 Glucose 99 Uric Acid 4.2 Calcium 8.7 Phosphorus 3.4 Magnesium 2.2 Total Bilirubin 0.5 Direct Bilirubin < 0.2 GGT 15 AST 13 ALT 18 Alkaline Phosphatase 47 Lactate Dehydrogenase 200 Total Protein 6.6 Albumin 3.4 Globulin 3.2 Albumin/Globulin Ratio 1.1 Triglycerides 112 A. flavus Allergen IgE Pending A. niger Allergen IgE Pending Aspergill fumigatus Ab Pending Medical - DS: A/P - Patient/Caregiver Discharge Instructions Activity: increase activity as tolerated Diet: Regular Diet Additional Instructions: Follow up with PCP in 7-10 days. You will need a Pulmonary function test as outpatient, You will need a CT chest in 4-6 weeks both of which can be ordered by your new doctor. You have low blood counts and need a colonoscopy. Make sure your doctor refers you to GI for screening colonoscopy. Go to the ER if worsening sob, or fever, or any other concerning symptom - Follow up Plan Follow up with: No,PCP [Primary Care Provider] - Disposition: Home, Self-Care Prognosis: Fair Rehab Potential: Fair I certify that the patient requires SNF services: No Overall status at discharge: patient is progressing back to baseline Medical - DS: Qual - VTE Deep Vein Thrombosis/Pulmonary Embolism Present on Admission: No
[2017-04-17] MEDS ORDERED: predniSONE 10 MG TABLET PO SCH (08:00)
== END 2017-04-16 14:02 | disposition home or self-care (01) | DRG 190 ==
LOC: ED 17:42 → ICU 20:44 → MEDSUR 04-14 00:47
PROVIDERS: ADMIT Internal Medicine; ATTEND Internal Medicine